=== PATIENT | female | born 2000 | race Caucasian/White ===

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

== ENCOUNTER → 2019-02-14 14:35 | Outpatient (CLI) | payer OTHER, SELFPAY ==
[2019-02-14 17:50] LABS: Absolute Neutrophil Count 4.3 X10^3/uL (2.0-7.7); Basophil# 0.02 X10^3/uL; Basophil% 0.3 % (0-1); Eosinophil# 0.04 X10^3/uL; Eosinophils% 0.6 % (0-5); Hemoglobin 13.3 g/dL (12.0-15.0); Lymphocyte % 27.9 % (19-41); Mean Corp Hgb Conc 31.7 g/dL (32-36); Mean Corpuscular Hgb 26.3 pg (27.0-32.0); Mean Corpuscular Volume 83.2 fL (81-99); Mean Platelet Vol. 11.3 fl (6.2-12.0); Monocyte# 0.56 X10^3/uL; Monocyte% 8.2 % (0-10); NRBC Flagged by Analyzer 0 % (0-5); Neutrophil # 4.27 X10^3/uL (2.7-7.7); Neutrophil % 62.9 % (47-70); Platelet Count 228 K/mm3 (150-450); RBC Distribution Width CV 12.3 % (11.6-14.6); RBC Distribution Width SD 37.2 fl (35.1-43.9); Red Blood Count 5.05 M/mm3 (4.2-5.4); White Blood Count 6.8 K/mm3 (4.4-11.0)
[2019-02-14 18:06] LABS: AST(SGOT) 17 U/L (15-37); Alanine Aminotransfer ALT/SGPT 22 U/L (13-56); Albumin, Serum 3.6 g/dL (3.2-5.0); Alkaline Phosphatase 46 U/L (45-117); Anion Gap 6 (5-15); BUN 14 mg/dL (7-18); BUN/Creat Ratio 20.2 RATIO (10-20); Calcium,Total 8.6 mg/dL (8.5-10.1); Chloride 109 mmol/L (98-107); Creatinine, Serum 0.69 mg/dL (0.55-1.02); EST Glomerular Filtration Rate 115 mL/min (>60); Est Glom Filt Rate - Afr Amer 139 mL/min (>60); Globulin 3.6 g/dL (2.2-4.2); Glucose 103 mg/dL (74-106); Potassium 3.8 mmol/L (3.5-5.1); Protein, Total 7.2 g/dL (6.4-8.2); Sodium Level 143 mmol/L (136-145)
== END ==
PROVIDERS: Family Provider Family Medicine; PCP Family Medicine; Referring Provider Internal Medicine Rheumatology; Visit Provider Internal Medicine Rheumatology
DX: M06.4 Inflammatory polyarthropathy (principal); R76.8 Other specified abnormal immunological findings in serum; R51 Headache
CPT/HCPCS: 36415; 80053; 85025

== ENCOUNTER → 2019-04-13 16:01 | Outpatient (CLI) | payer OTHER, SELFPAY ==
[2019-04-13 17:59] LABS: Absolute Lymphocyte Count 2.71 X10^3/uL (0.83-4.51); Absolute Neutrophil Count 5.5 X10^3/uL (2.0-7.7); Basophil# 0.04 X10^3/uL; Basophil% 0.4 % (0-1); Eosinophil# 0.09 X10^3/uL; Hematocrit 41.7 % (37-47); Hemoglobin 13.2 g/dL (12.0-15.0); Lymphocyte # 2.71 X10^3/ul (4.0); Mean Corp Hgb Conc 31.7 g/dL (32-36); Mean Corpuscular Hgb 26.5 pg (27.0-32.0); Mean Corpuscular Volume 83.6 fL (81-99); Mean Platelet Vol. 10.5 fl (6.2-12.0); Monocyte# 0.64 X10^3/uL; Monocyte% 7.1 % (0-10); NRBC Flagged by Analyzer 0 % (0-5); Neutrophil # 5.52 X10^3/uL (2.7-7.7); Neutrophil % 61.2 % (47-70); Platelet Count 267 K/mm3 (150-450); RBC Distribution Width CV 12.1 % (11.6-14.6); RBC Distribution Width SD 36.6 fl (35.1-43.9); Red Blood Count 4.99 M/mm3 (4.2-5.4)
[2019-04-13 18:32] LABS: ALB/GLOB Ratio 1.1 RATIO (0.9-2.4); AST(SGOT) 13 U/L (15-37); Alanine Aminotransfer ALT/SGPT 20 U/L (13-56); Albumin, Serum 3.7 g/dL (3.2-5.0); Alkaline Phosphatase 39 U/L (45-117); Anion Gap 4 (5-15); BUN 15 mg/dL (7-18); BUN/Creat Ratio 22.7 RATIO (10-20); Calcium,Total 8.4 mg/dL (8.5-10.1); Chloride 108 mmol/L (98-107); Creatinine, Serum 0.66 mg/dL (0.55-1.02); EST Glomerular Filtration Rate 122 mL/min (>60); Est Glom Filt Rate - Afr Amer 147 mL/min (>60); Globulin 3.3 g/dL (2.2-4.2); Glucose 87 mg/dL (74-106); Potassium 3.7 mmol/L (3.5-5.1); Sodium Level 142 mmol/L (136-145)
== END ==
PROVIDERS: Family Provider Family Medicine; PCP Family Medicine; Referring Provider Internal Medicine Rheumatology; Visit Provider Internal Medicine Rheumatology
DX: M06.4 Inflammatory polyarthropathy (principal); R76.8 Other specified abnormal immunological findings in serum; R51 Headache
CPT/HCPCS: 36415; 80053; 85025

== ENCOUNTER → 2019-06-30 16:06 | Outpatient (CLI) | payer OTHER, SELFPAY ==
[2019-06-30 18:59] LABS: Chlamydia Trachomatis by PCR Negative (Negative); Neisserai gonorrhoeae by PCR Negative (Negative); Probe Check PASS; Sample Adequacy Control PASS; Specimen Processing Control PASS
== END ==
LOC: LABSPEC 16:07
PROVIDERS: Family Provider Family Medicine; PCP Family Medicine; Visit Provider Obstetrics & Gynecology
DX: Z11.3 Encounter for screening for infections with a predominantly sexual mode of transmission (principal)
CPT/HCPCS: 87491; 87591

== ENCOUNTER → 2019-07-18 16:43 | Outpatient (CLI) | payer OTHER, SELFPAY ==
[2019-07-18 17:50] LABS: Absolute Lymphocyte Count 2.57 X10^3/uL (0.83-4.51); Absolute Neutrophil Count 2.2 X10^3/uL (2.0-7.7); Basophil# 0.02 X10^3/uL; Basophil% 0.4 % (0-1); Eosinophil# 0.08 X10^3/uL; Eosinophils% 1.5 % (0-5); Hematocrit 42.4 % (37-47); Hemoglobin 13.5 g/dL (12.0-15.0); Lymphocyte # 2.57 X10^3/ul (4.0); Lymphocyte % 48.1 % (19-41); Mean Corp Hgb Conc 31.8 g/dL (32-36); Mean Corpuscular Hgb 26.3 pg (27.0-32.0); Mean Corpuscular Volume 82.5 fL (81-99); Mean Platelet Vol. 10.6 fl (6.2-12.0); Monocyte# 0.46 X10^3/uL; Monocyte% 8.6 % (0-10); NRBC Flagged by Analyzer 0 % (0-5); Neutrophil # 2.21 X10^3/uL (2.7-7.7); Neutrophil % 41.4 % (47-70); Platelet Count 242 K/mm3 (150-450); RBC Distribution Width CV 11.8 % (11.6-14.6); RBC Distribution Width SD 35.6 fl (35.1-43.9); Red Blood Count 5.14 M/mm3 (4.2-5.4); White Blood Count 5.3 K/mm3 (4.4-11.0)
[2019-07-18 18:24] LABS: AST(SGOT) 16 U/L (15-37); Alanine Aminotransfer ALT/SGPT 21 U/L (13-56); Albumin, Serum 3.7 g/dL (3.2-5.0); Alkaline Phosphatase 41 U/L (45-117); Anion Gap 3 (5-15); BUN 10 mg/dL (7-18); BUN/Creat Ratio 15.9 RATIO (10-20); Calcium,Total 8.7 mg/dL (8.5-10.1); Chloride 109 mmol/L (98-107); Creatinine, Serum 0.63 mg/dL (0.55-1.02); EST Glomerular Filtration Rate 129 mL/min (>60); Est Glom Filt Rate - Afr Amer 156 mL/min (>60); Globulin 3.8 g/dL (2.2-4.2); Glucose 70 mg/dL (74-106); Potassium 3.4 mmol/L (3.5-5.1); Protein, Total 7.5 g/dL (6.4-8.2); Sodium Level 141 mmol/L (136-145)
== END ==
LOC: MTLAB 16:46
PROVIDERS: PCP Family Medicine; Referring Provider Internal Medicine Rheumatology; Visit Provider Internal Medicine Rheumatology
DX: M06.4 Inflammatory polyarthropathy (principal); R76.8 Other specified abnormal immunological findings in serum; R51 Headache; Z79.899 Other long term (current) drug therapy
CPT/HCPCS: 36415; 80053; 85025

== ENCOUNTER 2019-09-05 21:41 | Emergency (ER) | payer OTHER, SELFPAY ==
[2019-09-05 21:42] VITALS: BP 125/70; PULSE 77; RESP 16; TEMP 37; O2SAT 100; BMI 21.4
--- NOTE | 2019-09-05 21:43 | ED.RN ---
CALLED FOR EKG PER RN REQUEST, PULLED OLD EKGS FOR
--- NOTE | 2019-09-05 22:00 | RAD_ITS ---
STUDY: X-RAY CHEST REASON FOR EXAM: Female, 19 years old. CHEST PAIN STARTING TODAY TECHNIQUE: PA and lateral COMPARISON: August 03, 2018 FINDINGS: The lungs are clear and expanded. There is no demonstrated pleural abnormality. Normal size heart. Normal mediastinum and cayla. Normal visualized pulmonary arteries. Normal visualized aortic arch and descending thoracic aorta. Normal visualized thoracic spine. Normal visualized ribs, clavicles, and shoulders. There is no demonstrated abnormality of the visualized soft tissue structures of the upper abdomen. RAD/Chest PA and Lateral IMPRESSION: Normal x-ray examination of the chest. Electronically Signed: Willis Roldan MD at 22:18 EDT , Service support ,
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
[2019-09-05 22:15] LABS: Absolute Lymphocyte Count 3.02 X10^3/uL (0.83-4.51); Absolute Neutrophil Count 3.9 X10^3/uL (2.0-7.7); Basophil# 0.03 X10^3/uL; Basophil% 0.4 % (0-1); Eosinophil# 0.15 X10^3/uL; Eosinophils% 1.9 % (0-5); Hematocrit 44.3 % (37-47); Hemoglobin 14.3 g/dL (12.0-15.0); Lymphocyte # 3.02 X10^3/ul (4.0); Lymphocyte % 39.2 % (19-41); Mean Corp Hgb Conc 32.3 g/dL (32-36); Mean Corpuscular Volume 83.6 fL (81-99); Mean Platelet Vol. 10.3 fl (6.2-12.0); Monocyte# 0.61 X10^3/uL; Monocyte% 7.9 % (0-10); NRBC Flagged by Analyzer 0 % (0-5); Neutrophil # 3.88 X10^3/uL (2.7-7.7); Neutrophil % 50.3 % (47-70); Platelet Count 304 K/mm3 (150-450); RBC Distribution Width CV 12.7 % (11.6-14.6); RBC Distribution Width SD 38.2 fl (35.1-43.9); White Blood Count 7.7 K/mm3 (4.4-11.0)
--- NOTE | 2019-09-05 22:24 | EKG12_ITS ---
Test Reason : CP Blood Pressure : / mmHG Vent. Rate : 075 BPM Atrial Rate : 075 BPM P-R Int : 162 ms QRS Dur : 086 ms QT Int : 382 ms P-R-T Axes : -22 014 038 degrees QTc Int : 426 ms Normal sinus rhythm Nonspecific T wave abnormality Abnormal ECG Confirmed by PATRICIA PAYNE, TEDDY ([id number]), food editor MARY ANN DEWEY ([id number]) on 09/08/2019 12:54:47 PM Referred By: SANTIAGO Confirmed By:RUPESH GOMEZ MD
[2019-09-05 22:27] LABS: Anion Gap 6 (5-15); BUN 13 mg/dL (7-18); Calcium,Total 8.6 mg/dL (8.5-10.1); Chloride 112 mmol/L (98-107); Creatinine, Serum 0.68 mg/dL (0.55-1.02); EST Glomerular Filtration Rate 116 mL/min (>60); Est Glom Filt Rate - Afr Amer 140 mL/min (>60); Estimated Creatinine Clearance 123.54 ml/min; Glucose 111 mg/dL (74-106); Potassium 3.3 mmol/L (3.5-5.1); Sodium Level 143 mmol/L (136-145)
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
[2019-09-05 23:18] LABS: Erythrocyte Sedimentation Rate 3 mm/hr (0-20)
--- NOTE | 2019-09-05 23:19 | ED.DEP ---
ED Disposition - Plan for ED Patient: Instructions: CHEST PAIN, Uncertain Cause, Chest Wall Strain Referrals: Júnior Chapman III, MD [Primary Care Provider] - 3-5 Days
[2019-09-05 23:27] VITALS: BP 113/75; PULSE 77; RESP 18; O2SAT 99
== END 2019-09-05 23:27 | disposition home or self-care (01) ==
LOC: ED 22:22
PROVIDERS: Emergency Provider Emergency Medicine; PCP Family Medicine
DX: R07.89 Other chest pain (principal); M32.9 Systemic lupus erythematosus, unspecified
CPT/HCPCS: 71046; 71275; 80048; 85025; 85652; 93005; 99284; Q9967; A4216

== ENCOUNTER → 2019-09-25 08:37 | Outpatient (CLI) | payer OTHER, SELFPAY ==
[2019-09-05 21:42] VITALS: BMI 21.4
[2019-09-25 10:19] LABS: Absolute Lymphocyte Count 1.73 X10^3/uL (0.83-4.51); Absolute Neutrophil Count 5.6 X10^3/uL (2.0-7.7); Basophil# 0.03 X10^3/uL; Basophil% 0.4 % (0-1); Eosinophil# 0.21 X10^3/uL; Eosinophils% 2.5 % (0-5); Hematocrit 40.9 % (37-47); Hemoglobin 13.1 g/dL (12.0-15.0); Lymphocyte # 1.73 X10^3/ul (4.0); Lymphocyte % 20.8 % (19-41); Mean Corpuscular Hgb 26.6 pg (27.0-32.0); Mean Platelet Vol. 10.5 fl (6.2-12.0); Monocyte# 0.73 X10^3/uL; Monocyte% 8.8 % (0-10); NRBC Flagged by Analyzer 0 % (0-5); Neutrophil # 5.59 X10^3/uL (2.7-7.7); Neutrophil % 67.4 % (47-70); Platelet Count 241 K/mm3 (150-450); RBC Distribution Width CV 12.6 % (11.6-14.6); RBC Distribution Width SD 37.7 fl (35.1-43.9); Red Blood Count 4.93 M/mm3 (4.2-5.4); White Blood Count 8.3 K/mm3 (4.4-11.0)
[2019-09-25 10:34] LABS: AST(SGOT) 20 U/L (15-37); Alanine Aminotransfer ALT/SGPT 30 U/L (13-56); Albumin, Serum 3.7 g/dL (3.2-5.0); Alkaline Phosphatase 56 U/L (45-117); Anion Gap 7 (5-15); BUN 12 mg/dL (7-18); BUN/Creat Ratio 17.2 RATIO (10-20); Calcium,Total 8.8 mg/dL (8.5-10.1); Chloride 104 mmol/L (98-107); EST Glomerular Filtration Rate 113 mL/min (>60); Est Glom Filt Rate - Afr Amer 137 mL/min (>60); Globulin 3.8 g/dL (2.2-4.2); Glucose 89 mg/dL (74-106); Potassium 3.2 mmol/L (3.5-5.1); Protein, Total 7.5 g/dL (6.4-8.2); Sodium Level 139 mmol/L (136-145)
== END ==
PROVIDERS: PCP Family Medicine; Referring Provider Internal Medicine Rheumatology; Visit Provider Internal Medicine Rheumatology
DX: M06.4 Inflammatory polyarthropathy (principal); R76.8 Other specified abnormal immunological findings in serum; R51 Headache; Z79.899 Other long term (current) drug therapy
CPT/HCPCS: 36415; 80053; 85025

== ENCOUNTER 2019-11-16 17:25 | Emergency (ER) | payer OTHER, SELFPAY ==
[2019-11-16 17:25] VITALS: BP 174/99; PULSE 83; RESP 16; TEMP 36.1; O2SAT 97; BMI 20.9
--- NOTE | 2019-11-16 19:19 | ED.VISSUMM ---
- ER Visit Summary Date of Service: 11/16/19 Chief Complaint: [Pain] History of Present Illness: The patient is a 19 F [presents the emergency department chief complaint of pain that his whole body. Patient has history of lupus and think she is having a flareup. Patient try to call her surveillance supervisor but could not get a hold of her today. Patient denies any fever or cough. Denies any sore throat or body aches. Patient does complain of pain in her back as well as her knees. Patient complains of some pain into her neck. Patient already on prednisone daily 10 mg as well as Plaquenil and methotrexate. Takes a muscle relaxer.] Physical Examination: [HEENT-PERRLA, EOMI. Cranial nerves II through XII grossly intact. TMs clear. Mucous membranes moist. No adenopathy. Cardiovascular-regular rate and rhythm without murmur or ectopy Lungs-clear to auscultation, chest wall stable without crepitus or subcu emphysema Abdomen-normoactive bowel sounds, soft, nontender, no rebound or rigidity, no peritoneal signs. Back exam-no tenderness over the thoracic or lumbar spine. No real tenderness reproducible over the paraspinal musculature. Straight leg raises. Deep tendon reflexes are plus 2 out of 4 bilaterally. Extremities-intact ?4, normal range of motion, normal pulses, atraumatic] Test Results: [None indicated] Emergency Department Course and Treatment: [Patient had 1 dose of Castaner given.] Treatment Plan: [We will be given a prescription for Castaner and advised to follow-up with her surveillance supervisor within 3 to 4 days.] Disposition: [Discharged home in stable condition] Impression: [Whole-body pain/lupus flare] This note was generated with [employer] software. It may contain incorrect words, spelling, and punctuation that were not noted in review of the chart prior to signing ED Disposition - Plan for ED Patient: Referrals: Júnior Chapman III, MD [Primary Care Provider] -
--- NOTE | 2019-11-16 19:21 | DCINST.ED_ITS ---
ED Disposition - Plan for ED Patient: Instructions: Understanding Lupus Prescriptions: Hydrocodone Bitart/Apap 5-325 [Early 5MG-325MG] 1 tab PO Q4H PRN PRN 2 Days #10 tab PRN Reason: Pain Prescription Printed Referrals: Júnior Chapman III, MD [Primary Care Provider] - 3-5 Days Additional Instructions: Call your Health And Fitness Professor in 1-2 days
[2019-11-16] MEDS: HYDROcodone Bitartrate/Apap 5/325 Tablet PO (20:18)
[2019-11-16 20:23] VITALS: BP 125/78; PULSE 73; RESP 19; O2SAT 99
== END 2019-11-16 20:23 | disposition home or self-care (01) ==
LOC: ED 19:34
PROVIDERS: Emergency Provider Emergency Medicine; PCP Family Medicine
DX: M32.9 Systemic lupus erythematosus, unspecified (principal); M54.9 Dorsalgia, unspecified; M25.562 Pain in left knee; M25.561 Pain in right knee; M54.2 Cervicalgia; Z79.52 Long term (current) use of systemic steroids; Z79.899 Other long term (current) drug therapy
CPT/HCPCS: 99283

== ENCOUNTER → 2019-11-21 16:49 | Outpatient (CLI) | payer OTHER, SELFPAY ==
[2019-11-16 17:25] VITALS: BMI 20.9
[2019-11-21 18:51] LABS: Absolute Lymphocyte Count 1.44 X10^3/uL (0.83-4.51); Basophil# 0.02 X10^3/uL; Basophil% 0.2 % (0-1); Eosinophil# 0.01 X10^3/uL; Eosinophils% 0.1 % (0-5); Hemoglobin 12.9 g/dL (12.0-15.0); Lymphocyte # 1.44 X10^3/ul (4.0); Lymphocyte % 17.8 % (19-41); Mean Corp Hgb Conc 31.5 g/dL (32-36); Mean Corpuscular Hgb 26.5 pg (27.0-32.0); Mean Corpuscular Volume 84.2 fL (81-99); Mean Platelet Vol. 10.8 fl (6.2-12.0); Monocyte# 0.56 X10^3/uL; Monocyte% 6.9 % (0-10); NRBC Flagged by Analyzer 0 % (0-5); Neutrophil # 6.04 X10^3/uL (2.7-7.7); Neutrophil % 74.8 % (47-70); Platelet Count 289 K/mm3 (150-450); RBC Distribution Width CV 12.2 % (11.6-14.6); RBC Distribution Width SD 36.7 fl (35.1-43.9); Red Blood Count 4.87 M/mm3 (4.2-5.4); White Blood Count 8.1 K/mm3 (4.4-11.0)
[2019-11-21 19:22] LABS: AST(SGOT) 15 U/L (15-37); Alanine Aminotransfer ALT/SGPT 17 U/L (13-56); Albumin, Serum 3.9 g/dL (3.2-5.0); Alkaline Phosphatase 50 U/L (45-117); Anion Gap 8 (5-15); BUN 12 mg/dL (7-18); BUN/Creat Ratio 15.1 RATIO (10-20); Chloride 109 mmol/L (98-107); EST Glomerular Filtration Rate 97 mL/min (>60); Est Glom Filt Rate - Afr Amer 118 mL/min (>60); Globulin 3.8 g/dL (2.2-4.2); Glucose 128 mg/dL (74-106); Potassium 3.6 mmol/L (3.5-5.1); Protein, Total 7.7 g/dL (6.4-8.2); Sodium Level 142 mmol/L (136-145)
== END ==
PROVIDERS: PCP Family Medicine; Referring Provider Internal Medicine Rheumatology; Visit Provider Internal Medicine Rheumatology
DX: M06.4 Inflammatory polyarthropathy (principal); R76.8 Other specified abnormal immunological findings in serum; R51 Headache; Z79.899 Other long term (current) drug therapy
CPT/HCPCS: 36415; 80053; 85025

== ENCOUNTER → 2020-01-02 | Outpatient (CLI) | payer OTHER, SELFPAY | END | disposition home or self-care (01) | LOC: LABSPEC 01-03 07:33 | PROVIDERS: PCP Family Medicine; Visit Provider Family Medicine Hospice and Palliative Medicine | DX: Z11.59 Encounter for screening for other viral diseases (principal) | CPT/HCPCS: 87635; G2023; U0003 ==

== ENCOUNTER → 2020-02-19 11:48 | Outpatient (CLI) | payer OTHER, SELFPAY ==
[2020-02-19 15:59] LABS: Absolute Lymphocyte Count 2.13 X10^3/uL (0.83-4.51); Absolute Neutrophil Count 6.4 X10^3/uL (2.0-7.7); Basophil# 0.04 X10^3/uL; Basophil% 0.4 % (0-1); Eosinophil# 0.21 X10^3/uL; Eosinophils% 2.2 % (0-5); Hematocrit 42.5 % (37-47); Hemoglobin 13.4 g/dL (12.0-15.0); Lymphocyte # 2.13 X10^3/ul (4.0); Lymphocyte % 22.7 % (19-41); Mean Corp Hgb Conc 31.5 g/dL (32-36); Mean Corpuscular Hgb 26.2 pg (27.0-32.0); Mean Corpuscular Volume 83.2 fL (81-99); Mean Platelet Vol. 10.6 fl (6.2-12.0); Monocyte% 6.4 % (0-10); NRBC Flagged by Analyzer 0 % (0-5); Neutrophil # 6.37 X10^3/uL (2.7-7.7); Neutrophil % 68.1 % (47-70); Platelet Count 352 K/mm3 (150-450); RBC Distribution Width CV 12.7 % (11.6-14.6); RBC Distribution Width SD 37.9 fl (35.1-43.9); Red Blood Count 5.11 M/mm3 (4.2-5.4); White Blood Count 9.4 K/mm3 (4.4-11.0)
[2020-02-19 16:19] LABS: AST(SGOT) 12 U/L (15-37); Alanine Aminotransfer ALT/SGPT 20 U/L (13-56); Albumin, Serum 3.7 g/dL (3.2-5.0); Alkaline Phosphatase 52 U/L (45-117); Anion Gap 7 (5-15); BUN 10 mg/dL (7-18); BUN/Creat Ratio 15.2 RATIO (10-20); Calcium,Total 8.6 mg/dL (8.5-10.1); Chloride 108 mmol/L (98-107); Creatinine, Serum 0.66 mg/dL (0.55-1.02); EST Glomerular Filtration Rate 121 mL/min (>60); Est Glom Filt Rate - Afr Amer 147 mL/min (>60); Globulin 3.8 g/dL (2.2-4.2); Glucose 85 mg/dL (74-106); Potassium 3.5 mmol/L (3.5-5.1); Protein, Total 7.5 g/dL (6.4-8.2); Sodium Level 140 mmol/L (136-145)
== END ==
LOC: MTLAB 11:49
PROVIDERS: PCP Family Medicine; Referring Provider Internal Medicine Rheumatology; Visit Provider Internal Medicine Rheumatology
DX: M06.4 Inflammatory polyarthropathy (principal); R76.8 Other specified abnormal immunological findings in serum; R51 Headache; Z79.899 Other long term (current) drug therapy
CPT/HCPCS: 36415; 80053; 85025

== ENCOUNTER → 2020-02-21 16:05 | Outpatient (CLI) | payer OTHER, SELFPAY ==
--- NOTE | 2020-02-21 16:07 | RAD_ITS ---
STUDY: X-RAY CHEST REASON FOR EXAM: Female, 19 years old. PENITENTIARY DRUG USE FOR ARTHRITIS PER PATIENT. TECHNIQUE: PA and lateral views of the chest. COMPARISON: Prior study of 08/03/2018 FINDINGS: The lungs are clear and expanded. There is no demonstrated pleural abnormality. Normal size heart. Normal mediastinum and cayla. Normal visualized pulmonary arteries. Normal visualized aortic arch and descending thoracic aorta. Normal visualized thoracic spine. Normal visualized ribs, clavicles, and shoulders. There is no demonstrated abnormality of the visualized soft tissue structures of the upper abdomen. RAD/Chest PA and Lateral IMPRESSION: Normal x-ray examination of the chest. Electronically Signed: Goldy Cha MD at 16:41 EDT , Service support ,
[2020-02-24 08:08] LABS: QNTFERON TB Mitogen Value > 10.00 IU/mL (.); QNTFERON TB Nil Value 0.01 IU/mL (.); QNTFERON TB1+ Ag Value 0.13 IU/mL (.); QNTFERON TB2+ Ag Value 0.01 IU/mL (.)
[2020-02-24 14:08] LABS: QNTIFERON TB Positive Criteria Negative (Negative)
== END ==
LOC: MTLAB 16:06
PROVIDERS: PCP Family Medicine; Referring Provider Internal Medicine Rheumatology; Visit Provider Internal Medicine Rheumatology
DX: M06.4 Inflammatory polyarthropathy (principal); F32.9 Major depressive disorder, single episode, unspecified; R76.8 Other specified abnormal immunological findings in serum; R51 Headache; Z79.899 Other long term (current) drug therapy
CPT/HCPCS: 36415; 71046; 86480

== ENCOUNTER → 2020-04-11 16:25 | Outpatient (CLI) | payer OTHER, SELFPAY ==
[2020-04-11 17:40] LABS: Absolute Lymphocyte Count 2.48 X10^3/uL (0.83-4.51); Absolute Neutrophil Count 3.3 X10^3/uL (2.0-7.7); Basophil# 0.03 X10^3/uL; Basophil% 0.5 % (0-1); Eosinophil# 0.12 X10^3/uL; Eosinophils% 1.8 % (0-5); Hemoglobin 13.1 g/dL (12.0-15.0); Lymphocyte # 2.48 X10^3/ul (4.0); Lymphocyte % 37.5 % (19-41); Mean Corp Hgb Conc 31.2 g/dL (32-36); Mean Corpuscular Hgb 26.1 pg (27.0-32.0); Mean Corpuscular Volume 83.8 fL (81-99); Monocyte# 0.65 X10^3/uL; Monocyte% 9.8 % (0-10); NRBC Flagged by Analyzer 0 % (0-5); Neutrophil # 3.31 X10^3/uL (2.7-7.7); Neutrophil % 50.1 % (47-70); Platelet Count 274 K/mm3 (150-450); RBC Distribution Width CV 12.9 % (11.6-14.6); RBC Distribution Width SD 38.9 fl (35.1-43.9); Red Blood Count 5.01 M/mm3 (4.2-5.4); White Blood Count 6.6 K/mm3 (4.4-11.0)
[2020-04-11 18:02] LABS: AST(SGOT) 26 U/L (15-37); Alanine Aminotransfer ALT/SGPT 26 U/L (13-56); Albumin, Serum 3.8 g/dL (3.2-5.0); Alkaline Phosphatase 56 U/L (45-117); Anion Gap 4 (5-15); BUN 9 mg/dL (7-18); BUN/Creat Ratio 12.7 RATIO (10-20); Calcium,Total 8.9 mg/dL (8.5-10.1); Chloride 111 mmol/L (98-107); Creatinine, Serum 0.71 mg/dL (0.55-1.02); EST Glomerular Filtration Rate 111 mL/min (>60); Est Glom Filt Rate - Afr Amer 134 mL/min (>60); Globulin 3.8 g/dL (2.2-4.2); Glucose 77 mg/dL (74-106); Potassium 4.1 mmol/L (3.5-5.1); Protein, Total 7.6 g/dL (6.4-8.2); Sodium Level 141 mmol/L (136-145)
== END ==
PROVIDERS: PCP Family Medicine; Referring Provider Internal Medicine Rheumatology; Visit Provider Internal Medicine Rheumatology
DX: M06.09 Rheumatoid arthritis without rheumatoid factor, multiple sites (principal); F32.9 Major depressive disorder, single episode, unspecified; R51.9 Headache, unspecified; R76.8 Other specified abnormal immunological findings in serum; Z79.899 Other long term (current) drug therapy
CPT/HCPCS: 36415; 80053; 85025

== ENCOUNTER → 2020-07-12 15:43 | Outpatient (CLI) | payer OTHER, SELFPAY ==
[2020-07-12 17:43] LABS: Absolute Lymphocyte Count 2.51 X10^3/uL (0.83-4.51); Absolute Neutrophil Count 3.7 X10^3/uL (2.0-7.7); Basophil# 0.02 X10^3/uL; Basophil% 0.3 % (0-1); Eosinophil# 0.17 X10^3/uL; Eosinophils% 2.4 % (0-5); Hematocrit 46.4 % (37-47); Hemoglobin 14.5 g/dL (12.0-15.0); Lymphocyte # 2.51 X10^3/ul (4.0); Lymphocyte % 35.6 % (19-41); Mean Corp Hgb Conc 31.3 g/dL (32-36); Mean Corpuscular Hgb 26.3 pg (27.0-32.0); Mean Corpuscular Volume 84.1 fL (81-99); Mean Platelet Vol. 11.1 fl (6.2-12.0); Monocyte# 0.61 X10^3/uL; Monocyte% 8.6 % (0-10); NRBC Flagged by Analyzer 0 % (0-5); Neutrophil # 3.73 X10^3/uL (2.7-7.7); Neutrophil % 52.8 % (47-70); Platelet Count 304 K/mm3 (150-450); RBC Distribution Width CV 12.1 % (11.6-14.6); RBC Distribution Width SD 36.5 fl (35.1-43.9); Red Blood Count 5.52 M/mm3 (4.2-5.4); White Blood Count 7.1 K/mm3 (4.4-11.0)
[2020-07-12 17:55] LABS: AST(SGOT) 13 U/L (15-37); Alanine Aminotransfer ALT/SGPT 18 U/L (13-56); Albumin, Serum 3.7 g/dL (3.2-5.0); Alkaline Phosphatase 53 U/L (45-117); Anion Gap 5 (5-15); BUN 10 mg/dL (7-18); BUN/Creat Ratio 17.7 RATIO (10-20); Calcium,Total 8.6 mg/dL (8.5-10.1); Chloride 107 mmol/L (98-107); Creatinine, Serum 0.56 mg/dL (0.55-1.02); EST Glomerular Filtration Rate 144 mL/min (>60); Est Glom Filt Rate - Afr Amer 174 mL/min (>60); Globulin 3.8 g/dL (2.2-4.2); Glucose 78 mg/dL (74-106); Potassium 3.8 mmol/L (3.5-5.1); Protein, Total 7.5 g/dL (6.4-8.2); Sodium Level 140 mmol/L (136-145)
[2020-07-16 03:06] LABS: Chlamydia By Nucleic Acid AMP Negative (Negative)
[2020-07-16 09:44] LABS: Gonococcus By Nucleic Acid AMP Negative (Negative)
[2020-07-17 12:35] LABS: HPV Reflexed? NOT INDICATED
== END ==
PROVIDERS: PCP Family Medicine; Referring Provider Internal Medicine Rheumatology; Visit Provider Internal Medicine Rheumatology
DX: M06.09 Rheumatoid arthritis without rheumatoid factor, multiple sites (principal); F32.9 Major depressive disorder, single episode, unspecified; R76.8 Other specified abnormal immunological findings in serum; R51.9 Headache, unspecified; Z12.4 Encounter for screening for malignant neoplasm of cervix; Z11.3 Encounter for screening for infections with a predominantly sexual mode of transmission; Z79.899 Other long term (current) drug therapy
CPT/HCPCS: 36415; 80053; 85025; 87491; 87591; 88175; G0145

== ENCOUNTER → 2020-07-29 09:05 | Outpatient (CLI) | payer OTHER, SELFPAY ==
[2020-07-29 10:16] LABS: Cholesterol 173 mg/dL (200); High Density Lipoprotein 59 mg/dL; Triglycerides 155 mg/dL; Very Low Density Lipoprotein 31 mg/dL (5-40)
== END ==
LOC: LAB 09:08 → MTLAB 09:44
PROVIDERS: PCP Family Medicine; Referring Provider Internal Medicine Rheumatology; Visit Provider Internal Medicine Rheumatology
DX: M06.09 Rheumatoid arthritis without rheumatoid factor, multiple sites (principal); F32.9 Major depressive disorder, single episode, unspecified; R76.8 Other specified abnormal immunological findings in serum; R51.9 Headache, unspecified; Z79.899 Other long term (current) drug therapy
CPT/HCPCS: 36415; 80061

== ENCOUNTER 2020-08-09 12:00 | Emergency (ER) | payer OTHER, SELFPAY ==
[2020-08-09 12:01] VITALS: BP 132/82; PULSE 77; RESP 16; TEMP 36.6; O2SAT 97; BMI 22.6
--- NOTE | 2020-08-09 13:00 | EKG12_ITS ---
Test Reason : CP Blood Pressure : / mmHG Vent. Rate : 068 BPM Atrial Rate : 068 BPM P-R Int : 128 ms QRS Dur : 074 ms QT Int : 402 ms P-R-T Axes : 041 010 044 degrees QTc Int : 427 ms Normal sinus rhythm Normal ECG Confirmed by PATRICIA PAYNE, TEDDY ([id number]), international editorial producer ROBERT LEAHY ([id number]) on 08/12/2020 11:39:27 A M Referred By: MARIEL Confirmed By:RUPESH GOMEZ MD
--- NOTE | 2020-08-09 13:11 | RAD_ITS ---
STUDY: X-RAY CHEST REASON FOR EXAM: Female, 20 years old. CHEST PAIN, LIGHTHEADED, DIZZY, NAUSEA TECHNIQUE: Single AP portable view of the chest. COMPARISON: Comparison is made with prior study dated 02/21/2020. FINDINGS: EKG electrodes are seen. The lungs are clear and expanded. Scattered calcified granulomas. There is no demonstrated pleural abnormality. Normal size heart. Normal mediastinum and cayla. Normal visualized pulmonary arteries. Normal visualized aortic arch and descending thoracic aorta. Normal visualized thoracic spine. Normal visualized ribs, clavicles, and shoulders. There is no demonstrated abnormality of the visualized soft tissue structures of the upper abdomen. RAD/Chest 1 View (Portable) IMPRESSION: Normal x-ray examination of the chest. Electronically Signed: Chuy Sharif MD at 13:30 EST , Service support ,
[2020-08-09 13:25] LABS: Absolute Lymphocyte Count 2.25 X10^3/uL (0.83-4.51); Absolute Neutrophil Count 4.1 X10^3/uL (2.0-7.7); Basophil# 0.02 X10^3/uL; Basophil% 0.3 % (0-1); Eosinophil# 0.06 X10^3/uL; Eosinophils% 0.9 % (0-5); Hematocrit 44.7 % (37-47); Hemoglobin 14.6 g/dL (12.0-15.0); Lymphocyte # 2.25 X10^3/ul (4.0); Lymphocyte % 32.7 % (19-41); Mean Corp Hgb Conc 32.7 g/dL (32-36); Mean Corpuscular Hgb 26.5 pg (27.0-32.0); Mean Corpuscular Volume 81.3 fL (81-99); Mean Platelet Vol. 10.4 fl (6.2-12.0); Monocyte# 0.43 X10^3/uL; Monocyte% 6.2 % (0-10); NRBC Flagged by Analyzer 0 % (0-5); Neutrophil # 4.12 X10^3/uL (2.7-7.7); Neutrophil % 59.8 % (47-70); Platelet Count 287 K/mm3 (150-450); RBC Distribution Width CV 12.1 % (11.6-14.6); RBC Distribution Width SD 36.2 fl (35.1-43.9); White Blood Count 6.9 K/mm3 (4.4-11.0)
[2020-08-09 13:38] LABS: D-Dimer Quantitative (DVT/PE) <= 0.27 FEU/ug/m (0.27-0.49)
[2020-08-09 13:41] LABS: Anion Gap 7 (5-15); BUN 15 mg/dL (7-18); BUN/Creat Ratio 23.4 RATIO (10-20); Chloride 105 mmol/L (98-107); Creatinine, Serum 0.64 mg/dL (0.55-1.02); EST Glomerular Filtration Rate 124 mL/min (>60); Est Glom Filt Rate - Afr Amer 151 mL/min (>60); Estimated Creatinine Clearance 130.17 ml/min; Glucose 79 mg/dL (74-106); Potassium 3.4 mmol/L (3.5-5.1); Sodium Level 138 mmol/L (136-145)
[2020-08-09] MEDS: Aspirin 81 MG TAB.CHEW 324 MG PO (13:43)
--- NOTE | 2020-08-09 14:29 | ED.DCSUM_ITS ---
- ER Visit Summary Date of Service: 08/09/20 Chief Complaint: Chest pain History of Present Illness: The patient is a 20 F who presents with chest pain that has been constant for the past 2 weeks. Patient states the pain waxes and wanes. Patient states the pain became worse today. Patient describes her pain as burning. Patient states the pain is usually in the substernal area but sometimes radiates to the entire chest. Patient states it is worse with deep breathing. Patient states nothing seems to help. Patient admits to nausea but denies any vomiting. Patient also admits to some lightheadedness and palpitations. Patient denies any cough or fevers. Patient denies any cardiac or PE risk factors. Physical Examination: Vital signs are stable. Patient is afebrile. Patient is in no acute distress. Oral mucosa is pink and moist. Neck is supple. Trachea is midline. There is no JVD noted. Heart was regular rate and rhythm. Lungs are clear and equal bilaterally. Abdomen is soft. Bowel sounds are normal. There is no tenderness. There is no rebound or guarding noted. Skin is warm dry. Cranial nerves II through XII are intact. There are no focal motor or sensory deficits noted. Extremities are intact. There is no calf tenderness or edema. Test Results: EKG was obtained. On my interpretation, there is a normal sinus rhythm with a rate of 68. There are no acute ST or T wave changes. This was unchanged compared to previous EKG dated 09/05/2019. Portable 1 view chest x-ray was obtained. On my interpretation, lung santos are clear. There is normal cardiac silhouette. Bony thorax is normal. There is no acute process noted. Radiologist also interpreted the x-ray and agrees. CBC and basic metabolic profile were within normal limits. Troponin was normal. D-dimer was normal. Emergency Department Course and Treatment: Patient was given aspirin here. Patient was feeling better on reevaluation. Patient has a HEART score of 1. Patient was advised that this is low risk for acute cardiac event. Patient was instructed to follow-up with her primary care physician in 5 to 7 days. Patient understood and was agreeable with the plan. All questions were answered. Disposition: Discharge home Impression: 1. Chest pain of uncertain etiology This note was generated with [employer] dictation software. It may contain incorrect words, spelling, and punctuation that were not noted in review of the chart prior to signing ED Disposition - Plan for ED Patient: Disposition: Home or Assisted Living Diagnosis: Chest pain Instructions: ED Chest Pain, Uncertain Cause Referrals: Júnior Chapman III, MD [Primary Care Provider] - 5-7 Days
[2020-08-09 14:45] VITALS: BP 119/76; PULSE 73; RESP 21; O2SAT 97
--- NOTE | 2020-08-09 14:46 | ED.RN ---
IV DC'ED, CATHETER INTACT, SMALL GAUZE DRESSING PLACED. DISCHARGE INSTRUCTIONS GIVEN TO AND REVIEWED WITH PATIENT, PATIENT DENIES QUESTIONS OR CONCERNS AND VOICES UNDERSTANDING OF DISCHARGE INSTRUCTIONS. PT AMBULATES OUT OF ROOM WITHOUT DIFFICULTY.
== END 2020-08-09 14:46 | disposition home or self-care (01) ==
PROVIDERS: Emergency Provider Emergency Medicine; PCP Family Medicine
DX: R07.9 Chest pain, unspecified (principal)
CPT/HCPCS: 71045; 80048; 84484; 85025; 85379; 93005; 99285

== ENCOUNTER 2020-12-17 10:04 | Emergency (ER) | payer OTHER, SELFPAY ==
[2020-12-17 10:05] VITALS: BP 149/94; PULSE 75; RESP 16; TEMP 36.2; O2SAT 98; BMI 22.6
[2020-12-17 10:41] VITALS: BP 109/70; BP 117/82; BP 119/69; PULSE 63; PULSE 68; PULSE 71
--- NOTE | 2020-12-17 10:41 | RAD_ITS ---
STUDY: X-RAY CHEST REASON FOR EXAM: Female, 20 years old. Near syncope TECHNIQUE: 1 view COMPARISON: 08/09/2020 FINDINGS: The lungs are clear and expanded. There is no demonstrated pleural abnormality. Normal size heart. Normal mediastinum and cayla. Normal visualized pulmonary arteries. Normal visualized aortic arch and descending thoracic aorta. Normal visualized thoracic spine. Normal visualized ribs, clavicles, and shoulders. There is no demonstrated abnormality of the visualized soft tissue structures of the upper abdomen. RAD/Chest 1 View (Portable) IMPRESSION: Normal x-ray examination of the chest unchanged since July 2020. Electronically Signed: Lucía Alston, at 11:48 EDT Tel , Service support ,
--- NOTE | 2020-12-17 10:42 | EKG12_ITS ---
Test Reason : SYNCOPE Blood Pressure : / mmHG Vent. Rate : 063 BPM Atrial Rate : 063 BPM P-R Int : 162 ms QRS Dur : 082 ms QT Int : 396 ms P-R-T Axes : 012 016 027 degrees QTc Int : 405 ms Normal sinus rhythm Normal ECG Confirmed by LETHA PAYNE, JENNIFER ([id number]), proposal editor ROBERT LEAHY ([id number]) on 12/19/2020 12:31:48 PM Referred By: HONEY/LEONARD Confirmed By:JENNIFER MONAE MD
--- NOTE | 2020-12-17 10:46 | EX.ED.DYSGE1 ---
HPI History of Present Illness Chief Complaint: Dizziness Informant: patient Onset/Context/Timing Onset: Month(s) (1) Context: Gradual Onset Timing: Intermittent Quality: Lightheaded Location: Generalized Worsened by: Nothing Relieved by: Nothing Narrative Narrative: Patient presents with weakness and near syncopal episode today. Patient states she has been having similar symptoms over the past month. Patient states they are intermittent. Patient states she feels lightheaded and weak. Patient states that today she nearly passed out but her boss caught her prior to falling. Patient states nothing makes it worse and nothing makes it better. Patient states she does have some feelings like she is shaky. Patient states she has had pain on the right side of her chest in the past but had this worked up and it was negative. Patient denies any other chest pain or palpitations. [facility] Medical History (Updated 12/17/20 @ 12:[address] Cory Tripathi, DO) Rheumatoid arthritis Home Medications topiramate [Topamax] 50 mg PO DAILY 07/03/16 [History Last Taken 08/03/18] norgestimate-ethinyl estradiol [[place]-Linyah 28 Tablet] 1 tab PO DAILY 08/03/18 [History Last Taken 08/03/18] folic acid 2 mg PO DAILY 09/05/19 [History Last Taken Unknown] hydroxychloroquine 300 mg PO DAILYCM 09/05/19 [History Last Taken Unknown] methotrexate sodium 8 tab PO QWEEK 09/05/19 [History Last Taken Unknown] tizanidine 4 mg PO TID PRN 11/16/19 [History Last Taken Unknown] buspirone 15 mg PO TID 08/09/20 [History Last Taken Unknown] duloxetine 30 mg PO DAILY 08/09/20 [History Last Taken Unknown] hydrocodone-acetaminophen 1 tab PO Q8H PRN 08/09/20 [History Last Taken Unknown] rizatriptan 10 mg PO PRN PRN 08/09/20 [History Last Taken Unknown] cephalexin 500 mg PO Q6 #12 capsule 12/17/20 [Rx Last Taken Unknown] tofacitinib [Xeljanz XR] 11 mg PO DAILY 12/17/20 [History Last Taken Unknown] Allergy/AdvReac Type Severity Reaction Status Date / Time No Known Allergies Allergy Verified 12/17/20 10:05 no surgical history Social History Smoking Status: Never smoker ROS ROS ED Constitutional Constitutional ED: Denies chills or fever(s) Eyes Eyes: Denies blurry vision or change in vision ENT ENT ED: Denies rhinorrhea or sore throat Cardiovascular Cardiovascular: Reports chest pain; Denies palpitations Respiratory/Chest Respiratory/Chest: Denies cough or dyspnea Gastrointestinal Gastrointestinal: Denies nausea or vomiting Genitourinary Genitourinary ED: Denies dysuria or hematuria Musculoskeletal Musculoskeletal: Reports arthralgias; Denies myalgias Integumentary Denies abscess or rash Neurologic Neurologic: Denies headache(s) or weakness Allergic/Immunologic Allergic/Immunologic ED: Denies mouth swelling or urticaria EXAM Physical Exam Const Vital Signs: 12/17/20 10:05 12/17/20 10:41 12/17/20 11:21 Temperature 97.1 F L Temperature Source Temporal Pulse Rate 75 66 Pulse Rate [Lying] 63 Pulse Rate [Sitting] 68 Pulse Rate [Standing] 71 Respiratory Rate 16 16 Respiratory Effort Normal Respiratory Pattern Normal Blood Pressure 149/94 H 117/82 H Blood Pressure [Lying] 109/70 Blood Pressure [Sitting] 119/69 Blood Pressure [Standing] 117/82 H Blood Pressure Mean 112 93 Blood Pressure Mean [Lying] 83 Blood Pressure Mean [Sitting] 85 Blood Pressure Mean [Standing] 93 Pulse Ox 98 8 Oxygen Delivery Method Room Air Room Air Positive well nourished and well developed General Appearance ED: well developed HEENT Reports moist mucous membranes Neck supple and no JVD Resp normal respiratory effort and clear to auscultation bilaterally Cardio regular rate, regular rhythm and no murmurs GI normal to inspection, nondistended, normoactive bowel sounds and non-tender Palpation: soft Extremity normal to inspection General Extremety ED: Negative for edema or tenderness General Extremity: Negative for edema Neuro oriented x3, CN's II-XII intact bilaterally and no sensory deficits noted Sensorium / Orientation: alert Motor Exam: strength 5/5 throughout Psych mental status grossly normal Skin no rashes or lesions noted MDM MDM MDM Narrative Medical decision making narrative: Patient was given IV fluids here. CBC and comprehensive metabolic profile were within normal limits. Urinalysis shows leukocyte esterase of 500 with 10-25 white blood cells. Portable 1 view chest x-ray was obtained. On my interpretation, lung santos are clear. There is normal cardiac silhouette. Bony thorax is normal. There is no acute process noted. Radiologist also interpreted the x-ray and agrees. EKG was obtained. On my interpretation, it showed a normal sinus rhythm with a rate of 63. PA interval, QRS interval, and QTc intervals were all normal. [place] was normal. There are no acute ST or T wave changes. Serum hCG was negative. Patient was advised of her findings. Patient was given a prescription for Keflex. Patient was given her first dose here. Patient was instructed to follow-up with her primary care physician in 3 to 5 days. Patient understood and was agreeable with the plan. All questions were answered. Lab Data Attestation: I reviewed the patient's lab results. Labs: Laboratory Results - last 24 hr 12/17/20 12/17/20 12/17/20 11:09 11:15 11:15 WBC 8.3 RBC 5.20 Hgb 13.3 Hct 42.3 MCV 81.3 MCH 25.6 L MCHC 31.4 L RDW Std Deviation 36.2 RDW Coeff of Davi 12.2 Plt Count 250 MPV 10.4 Immature Gran % (Auto) 0.200 Neut % (Auto) 66.8 Lymph % (Auto) 25.6 [place] % (Auto) 5.9 Eos % (Auto) 1.3 Baso % (Auto) 0.2 Absolute Neuts (auto) 5.6 Absolute Lymphs (auto) 2.13 Nucleated RBC % 0 Sodium 140 Potassium 3.6 Chloride 107 Carbon Dioxide 27.0 Anion Gap 6 BUN 10 Creatinine 0.61 Estim Creat Clear Calc 136.57 Est GFR (MDRD) Af Amer 159 Est GFR (MDRD) Non-Af 131 BUN/Creatinine Ratio 16.4 Glucose 87 Calcium 8.6 Total Bilirubin 0.40 AST 14 L ALT 16 Alkaline Phosphatase 64 Total Protein 7.4 Albumin 3.8 Globulin 3.6 Albumin/Globulin Ratio 1.1 Serum , Qual Urine Color Yellow Urine Clarity Sl. Cloudy Urine pH 7.0 Ur Specific [place] 1.005 Urine Protein Negative Urine Glucose (UA) Normal Urine Ketones Negative Urine Occult Blood Negative Urine Nitrite Negative Urine Bilirubin Negative Urine Urobilinogen Normal Ur Leukocyte Esterase 500 H Urine RBC 0-5 SEEN Urine WBC 10-25 SEEN Ur Squamous Epith Cells 0-5 SEEN Urine Bacteria RARE Urine Mucus 0 SEEN 06/22/21 11:15 WBC RBC Hgb Hct MCV MCH MCHC RDW Std Deviation RDW Coeff of Davi Plt Count MPV Immature Gran % (Auto) Neut % (Auto) Lymph % (Auto) [place] % (Auto) Eos % (Auto) Baso % (Auto) Absolute Neuts (auto) Absolute Lymphs (auto) Nucleated RBC % Sodium Potassium Chloride Carbon Dioxide Anion Gap BUN Creatinine Estim Creat Clear Calc Est GFR (MDRD) Af Amer Est GFR (MDRD) Non-Af BUN/Creatinine Ratio Glucose Calcium Total Bilirubin AST ALT Alkaline Phosphatase Total Protein Albumin Globulin Albumin/Globulin Ratio Serum , Qual NEGATIVE Urine Color Urine Clarity Urine pH Ur Specific [place] Urine Protein Urine Glucose (UA) Urine Ketones Urine Occult Blood Urine Nitrite Urine Bilirubin Urine Urobilinogen Ur Leukocyte Esterase Urine RBC Urine WBC Ur Squamous Epith Cells Urine Bacteria Urine Mucus Radiography Chest X-Ray - ED: 1 View, Read by ED Physician, Read by Radiologist and Normal Diagnostic Testing: Radiology Impression Chest X-Ray 12/17/20 10:41 IMPRESSION: Normal x-ray examination of the chest unchanged since July 2020. Electronically Signed: Lucía Alston, at 11:48 EDT Tel , Service support , EKG Initial EKG: Attestation: I personally reviewed and interpreted this EKG as follows: Interpretation: Sinus Rhythm (63) and No Acute Injury Pattern Discharge Plan Triage Chief Complaint: Dizziness ED Provider: Cory Tripathi Dx/Rx/DC Orders Clinical Impression: Urinary tract infection, Near syncope Instructions: ED Near-Fainting, Uncertain Cause, ED CYSTITIS Female Adult Prescriptions: New cephalexin [cephalexin] 500 MG capsule 500 mg PO Q6 Qty: 12 RF: 0 No Action topiramate [Topamax] 25 MG tablet 50 mg PO DAILY RF: 0 norgestimate-ethinyl estradiol [[place]-Linyah] 1 EACH tablet 1 tab PO DAILY RF: 0 methotrexate sodium 2.5 MG tablet 8 tab PO QWEEK RF: 0 folic acid 1 MG tablet 2 mg PO DAILY RF: 0 hydroxychloroquine 200 MG tablet 300 mg PO DAILYCM RF: 0 tizanidine 4 MG capsule 4 mg PO TID PRN (Reason: Pain Or Fever) RF: 0 hydrocodone-acetaminophen 1 TABLET tablet 1 tab PO Q8H PRN (Reason: Pain 1-10 Or Fever) RF: 0 rizatriptan 10 MG tablet 10 mg PO PRN PRN (Reason: Headache) RF: 0 buspirone 15 MG tablet 15 mg PO TID RF: 0 duloxetine 30 MG capsule 30 mg PO DAILY RF: 0 Xeljanz XR 11 mg Tablet Extended Release 24 Hr 11 mg PO DAILY RF: 0 Stand Alone Forms: ED Work / School Excuse Primary Care Provider: Júnior Chapman III Referrals: Júnior Chapman III, MD [Primary Care Provider] - 3-5 Days Disposition Disposition: Home, Self Care
[2020-12-17 11:16] LABS: Mucous, Urine 0 SEEN /hpf (<or=2+)
[2020-12-17] MEDS: 0.9% Normal Saline 1,000 ML 1000 ML IV (11:16)
[2020-12-17 11:19] LABS: Color, Urine Yellow (Yellow); Glucose, Dipstick Normal (Normal); Ketone-Dipstick Negative (Negative); Leukocyte Esterase-Dipstick 500 /ul (Negative); Nitrite-Dipstick Negative (Negative); Occult Blood-Urine Negative /ul (Negative); Protein-Dipstick Negative (Negative); Specific Gravity, Urine 1.005 (1.002-1.030); Urine Bilirubin Dipstick Negative (Negative); Urine Clarity Sl. Cloudy (Clear); Urine Urobilinogen Normal (Normal)
[2020-12-17 11:21] VITALS: BP 117/82; PULSE 66; RESP 16; O2SAT 8
[2020-12-17 11:29] LABS: Bacteria RARE /hpf (None Seen); Red Blood Cells-Urine 0-5 SEEN /hpf (0-5); Squamous Epithelial Cells - UA 0-5 SEEN /hpf (5-10); White Blood Cells 10-25 SEEN /hpf (0-5)
[2020-12-17 11:29] LABS: Absolute Lymphocyte Count 2.13 X10^3/uL (0.83-4.51); Absolute Neutrophil Count 5.6 X10^3/uL (2.0-7.7); Basophil# 0.02 X10^3/uL; Basophil% 0.2 % (0-1); Eosinophil# 0.11 X10^3/uL; Eosinophils% 1.3 % (0-5); Hematocrit 42.3 % (37-47); Hemoglobin 13.3 g/dL (12.0-15.0); Lymphocyte # 2.13 X10^3/ul (0.83-4.51); Lymphocyte % 25.6 % (19-41); Mean Corp Hgb Conc 31.4 g/dL (32-36); Mean Corpuscular Hgb 25.6 pg (27.0-32.0); Mean Corpuscular Volume 81.3 fL (81-99); Mean Platelet Vol. 10.4 fl (6.2-12.0); Monocyte# 0.49 X10^3/uL; Monocyte% 5.9 % (0-10); NRBC Flagged by Analyzer 0 % (0-5); Neutrophil # 5.55 X10^3/uL (2.7-7.7); Neutrophil % 66.8 % (47-70); Platelet Count 250 K/mm3 (150-450); RBC Distribution Width CV 12.2 % (11.6-14.6); RBC Distribution Width SD 36.2 fl (35.1-43.9); White Blood Count 8.3 K/mm3 (4.4-11.0)
[2020-12-17 11:37] LABS: Internal QC Validated? YES +Cl - CLEAR BKGD; Pregnancy, Serum, hCG Quali. NEGATIVE Negative
[2020-12-17 11:47] LABS: ALB/GLOB Ratio 1.1 RATIO (0.9-2.4); AST(SGOT) 14 U/L (15-37); Alanine Aminotransfer ALT/SGPT 16 U/L (13-56); Albumin, Serum 3.8 g/dL (3.2-5.0); Alkaline Phosphatase 64 U/L (45-117); Anion Gap 6 (5-15); BUN 10 mg/dL (7-18); BUN/Creat Ratio 16.4 RATIO (10-20); Calcium,Total 8.6 mg/dL (8.5-10.1); Chloride 107 mmol/L (98-107); Creatinine, Serum 0.61 mg/dL (0.55-1.02); EST Glomerular Filtration Rate 131 mL/min (>60); Est Glom Filt Rate - Afr Amer 159 mL/min (>60); Estimated Creatinine Clearance 136.57 ml/min; Globulin 3.6 g/dL (2.2-4.2); Glucose 87 mg/dL (74-106); Potassium 3.6 mmol/L (3.5-5.1); Protein, Total 7.4 g/dL (6.4-8.2); Sodium Level 140 mmol/L (136-145)
[2020-12-17] MEDS: Cephalexin 500 MG Capsule PO (12:58)
[2020-12-17 13:02] VITALS: BP 98/67; PULSE 74; RESP 16; O2SAT 100
--- NOTE | 2020-12-17 13:03 | ED.RN ---
THIS NURSE REVIEWED D/C INSTRUCTIONS WITH PT AND VISITOR. PT VERBALIZED UNDERSTANDING OF INSTRUCTIONS. IV D/C. IV CATHETER INTACT. PT TOLERATED WELL. PT DENIES FURTHER NEEDS OR QUESTIONS AT THIS TIME.
== END 2020-12-17 13:04 | disposition home or self-care (01) ==
PROVIDERS: Emergency Provider Emergency Medicine; PCP Family Medicine
DX: N39.0 Urinary tract infection, site not specified (principal); R55 Syncope and collapse; M06.9 Rheumatoid arthritis, unspecified; Z79.899 Other long term (current) drug therapy
CPT/HCPCS: 71045; 80053; 81001; 84703; 85025; 93005; 96360; 96361; 99285; J7030

== ENCOUNTER → 2021-01-03 08:29 | Outpatient (CLI) | payer OTHER, SELFPAY ==
[2020-12-17 10:05] VITALS: BMI 22.6
[2021-01-02 17:41] LABS: Absolute Lymphocyte Count 1.94 X10^3/uL (0.83-4.51); Absolute Neutrophil Count 5.1 X10^3/uL (2.0-7.7); Basophil# 0.03 X10^3/uL; Basophil% 0.4 % (0-1); Eosinophil# 0.14 X10^3/uL; Eosinophils% 1.8 % (0-5); Hematocrit 41.2 % (37-47); Lymphocyte # 1.94 X10^3/ul (0.83-4.51); Lymphocyte % 24.3 % (19-41); Mean Corp Hgb Conc 31.6 g/dL (32-36); Mean Corpuscular Hgb 25.7 pg (27.0-32.0); Mean Corpuscular Volume 81.4 fL (81-99); Mean Platelet Vol. 10.9 fl (6.2-12.0); Monocyte# 0.74 X10^3/uL; Monocyte% 9.3 % (0-10); NRBC Flagged by Analyzer 0 % (0-5); Neutrophil # 5.13 X10^3/uL (2.7-7.7); Neutrophil % 63.9 % (47-70); Platelet Count 263 K/mm3 (150-450); RBC Distribution Width CV 12.8 % (11.6-14.6); RBC Distribution Width SD 37.6 fl (35.1-43.9); Red Blood Count 5.06 M/mm3 (4.2-5.4)
[2021-01-02 18:05] LABS: AST(SGOT) 15 U/L (15-37); Alanine Aminotransfer ALT/SGPT 21 U/L (13-56); Albumin, Serum 3.7 g/dL (3.2-5.0); Alkaline Phosphatase 60 U/L (45-117); Anion Gap 8 (5-15); BUN 9 mg/dL (7-18); BUN/Creat Ratio 14.1 RATIO (10-20); Calcium,Total 8.6 mg/dL (8.5-10.1); Chloride 106 mmol/L (98-107); Creatinine, Serum 0.64 mg/dL (0.55-1.02); EST Glomerular Filtration Rate 124 mL/min (>60); Est Glom Filt Rate - Afr Amer 150 mL/min (>60); Globulin 3.8 g/dL (2.2-4.2); Glucose 85 mg/dL (74-106); Potassium 3.7 mmol/L (3.5-5.1); Protein, Total 7.5 g/dL (6.4-8.2); Sodium Level 138 mmol/L (136-145)
[2021-01-02 18:12] LABS: Erythrocyte Sedimentation Rate 12 mm/hr (0-30)
[2021-01-03 10:07] LABS: Absolute Lymphocyte Count 1.58 X10^3/uL (0.83-4.51); Absolute Neutrophil Count 6.2 X10^3/uL (2.0-7.7); Basophil# 0.04 X10^3/uL; Basophil% 0.4 % (0-1); Eosinophil# 0.33 X10^3/uL; Eosinophils% 3.7 % (0-5); Hematocrit 43.3 % (37-47); Hemoglobin 13.7 g/dL (12.0-15.0); Lymphocyte # 1.58 X10^3/ul (0.83-4.51); Lymphocyte % 17.6 % (19-41); Mean Corp Hgb Conc 31.6 g/dL (32-36); Mean Corpuscular Hgb 25.8 pg (27.0-32.0); Mean Corpuscular Volume 81.7 fL (81-99); Mean Platelet Vol. 11.1 fl (6.2-12.0); Monocyte# 0.78 X10^3/uL; Monocyte% 8.7 % (0-10); NRBC Flagged by Analyzer 0 % (0-5); Neutrophil # 6.22 X10^3/uL (2.7-7.7); Neutrophil % 69.4 % (47-70); Platelet Count 259 K/mm3 (150-450); RBC Distribution Width CV 12.8 % (11.6-14.6)
[2021-01-03 10:15] LABS: Erythrocyte Sedimentation Rate 11 mm/hr (0-30)
[2021-01-03 10:33] LABS: AST(SGOT) 20 U/L (15-37); Alanine Aminotransfer ALT/SGPT 22 U/L (13-56); Albumin, Serum 3.6 g/dL (3.2-5.0); Alkaline Phosphatase 66 U/L (45-117); Anion Gap 8 (5-15); BUN 7 mg/dL (7-18); BUN/Creat Ratio 11.6 RATIO (10-20); Calcium,Total 8.4 mg/dL (8.5-10.1); Chloride 107 mmol/L (98-107); Cholesterol 181 mg/dL (200); Creatinine, Serum 0.61 mg/dL (0.55-1.02); EST Glomerular Filtration Rate 132 mL/min (>60); Est Glom Filt Rate - Afr Amer 160 mL/min (>60); Globulin 3.5 g/dL (2.2-4.2); Glucose 95 mg/dL (74-106); High Density Lipoprotein 57 mg/dL; Protein, Total 7.1 g/dL (6.4-8.2); Sodium Level 140 mmol/L (136-145); Triglycerides 54 mg/dL; Very Low Density Lipoprotein 11 mg/dL (5-40)
== END ==
LOC: MTLAB 08:30
PROVIDERS: Referring Provider Internal Medicine Rheumatology; Visit Provider Internal Medicine Rheumatology
DX: M06.09 Rheumatoid arthritis without rheumatoid factor, multiple sites (principal); Z79.899 Other long term (current) drug therapy; R76.8 Other specified abnormal immunological findings in serum; F32.9 Major depressive disorder, single episode, unspecified
CPT/HCPCS: 36415; 80053; 80061; 85025; 85652; 86140

== ENCOUNTER → 2021-01-30 16:26 | Outpatient (CLI) | payer OTHER, SELFPAY ==
[2021-01-30 18:06] LABS: Hematocrit 41.8 % (37-47); Hemoglobin 13.3 g/dL (12.0-15.0); Mean Corp Hgb Conc 31.8 g/dL (32-36); Mean Corpuscular Hgb 25.7 pg (27.0-32.0); Mean Corpuscular Volume 80.7 fL (81-99); Mean Platelet Vol. 10.9 fl (6.2-12.0); Platelet Count 271 K/mm3 (150-450); Red Blood Count 5.18 M/mm3 (4.2-5.4); White Blood Count 5.9 K/mm3 (4.4-11.0)
[2021-01-30 18:27] LABS: ALB/GLOB Ratio 0.9 RATIO (0.9-2.4); AST(SGOT) 14 U/L (15-37); Alanine Aminotransfer ALT/SGPT 24 U/L (13-56); Albumin, Serum 3.7 g/dL (3.2-5.0); Alkaline Phosphatase 55 U/L (45-117); Anion Gap 8 (5-15); BUN 12 mg/dL (7-18); BUN/Creat Ratio 19.3 RATIO (10-20); Calcium,Total 8.7 mg/dL (8.5-10.1); Chloride 107 mmol/L (98-107); Creatinine, Serum 0.62 mg/dL (0.55-1.02); EST Glomerular Filtration Rate 128 mL/min (>60); Est Glom Filt Rate - Afr Amer 155 mL/min (>60); Globulin 3.9 g/dL (2.2-4.2); Glucose 91 mg/dL (74-106); Potassium 3.7 mmol/L (3.5-5.1); Protein, Total 7.6 g/dL (6.4-8.2); Sodium Level 141 mmol/L (136-145); T4 Free Direct 0.78 ng/dL (0.76-1.46); Thyroid Stim Hormone (TSH) 1.78 uIU/mL (0.358-3.74)
[2021-02-02 07:06] LABS: QNTFERON TB Mitogen Value > 10.00 IU/mL (.); QNTFERON TB Nil Value 0.04 IU/mL (.); QNTFERON TB1+ Ag Value 0.05 IU/mL (.); QNTFERON TB2+ Ag Value 0.06 IU/mL (.)
[2021-02-02 07:41] LABS: QNTIFERON TB Positive Criteria Negative (Negative)
== END ==
LOC: MTLAB 16:29
PROVIDERS: PCP Nurse Practitioner Primary Care; Referring Provider Internal Medicine Rheumatology; Visit Provider Internal Medicine Rheumatology
DX: M06.09 Rheumatoid arthritis without rheumatoid factor, multiple sites (principal); F32.9 Major depressive disorder, single episode, unspecified; R76.8 Other specified abnormal immunological findings in serum; R51.9 Headache, unspecified; R55 Syncope and collapse; R42 Dizziness and giddiness; Z79.899 Other long term (current) drug therapy
CPT/HCPCS: 36415; 80053; 84439; 84443; 85027; 86480

== ENCOUNTER → 2021-04-24 17:18 | Outpatient (CLI) | payer OTHER, SELFPAY ==
[2021-04-24 17:38] LABS: Basophil# 0.03 X10^3/uL; Basophil% 0.4 % (0-1); Eosinophil# 0.08 X10^3/uL; Eosinophils% 1.2 % (0-5); Hematocrit 42.8 % (37-47); Hemoglobin 13.5 g/dL (12.0-15.0); Lymphocyte % 46.4 % (19-41); Mean Corp Hgb Conc 31.5 g/dL (32-36); Mean Corpuscular Hgb 25.8 pg (27.0-32.0); Mean Corpuscular Volume 81.7 fL (81-99); Mean Platelet Vol. 10.3 fl (6.2-12.0); Monocyte# 0.53 X10^3/uL; Monocyte% 7.7 % (0-10); NRBC Flagged by Analyzer 0 % (0-5); Neutrophil # 3.04 X10^3/uL (2.7-7.7); Neutrophil % 44.2 % (47-70); Platelet Count 276 K/mm3 (150-450); RBC Distribution Width SD 38.4 fl (35.1-43.9); Red Blood Count 5.24 M/mm3 (4.2-5.4); White Blood Count 6.9 K/mm3 (4.4-11.0)
[2021-04-24 18:51] LABS: ALB/GLOB Ratio 0.9 RATIO (0.9-2.4); AST(SGOT) 14 U/L (15-37); Alanine Aminotransfer ALT/SGPT 25 U/L (13-56); Albumin, Serum 3.5 g/dL (3.2-5.0); Alkaline Phosphatase 54 U/L (45-117); Anion Gap 4 (5-15); BUN 9 mg/dL (7-18); BUN/Creat Ratio 14.7 RATIO (10-20); Calcium,Total 8.6 mg/dL (8.5-10.1); Chloride 107 mmol/L (98-107); Creatinine, Serum 0.61 mg/dL (0.55-1.02); EST Glomerular Filtration Rate 130 mL/min (>60); Est Glom Filt Rate - Afr Amer 157 mL/min (>60); Globulin 3.9 g/dL (2.2-4.2); Glucose 85 mg/dL (74-106); Potassium 3.5 mmol/L (3.5-5.1); Protein, Total 7.4 g/dL (6.4-8.2); Sodium Level 140 mmol/L (136-145)
== END ==
PROVIDERS: PCP Nurse Practitioner Primary Care; Referring Provider Internal Medicine Rheumatology; Visit Provider Internal Medicine Rheumatology
DX: M06.09 Rheumatoid arthritis without rheumatoid factor, multiple sites (principal); F32.A Depression, unspecified; R76.8 Other specified abnormal immunological findings in serum; R51.9 Headache, unspecified; Z79.899 Other long term (current) drug therapy
CPT/HCPCS: 36415; 80053; 85025

== ENCOUNTER 2022-05-25 18:44 | Emergency (ER) | payer OTHER, SELFPAY ==
[2022-05-25 18:45] VITALS: BP 114/82; PULSE 74; RESP 14; TEMP 36.2; O2SAT 100; BMI 23.8
--- NOTE | 2022-05-25 19:30 | EX.ED.VIS.HA ---
HPI History of Present Illness Chief Complaint: Headache Informant: patient Onset/Context/Timing Onset: Today and Hours Timing: Continuous Quality -Headache: Positive for Similar Prior Headaches, Dull and Throbbing Current Severity: Moderate Associated Symptoms/Injury Associated Symptoms: Negative for Fever, Nausea, Vomiting, Sore Throat, Sinus Pressure, Numbness, Tingling, Preceding Aura, Visual Changes, Photophobia or Visual Loss Injury - GALDAMEZ: Negative for Direct Trauma, Fall or Assault Narrative Narrative: [id number] female history of migraine headaches, rheumatoid arthritis and fibromyalgia. Chest pain gets headaches monthly. Today is one of her typical migraine headaches with pain along the right side of her face. Also along her right forehead and behind her right eye. Denies nausea vomiting diarrhea. Does have photophobia. No fevers. No trauma. No. States she used her Topamax at home and Tylenol without any significant relief. Called her primary care physician who sent her in to be evaluated. Prior similar symptoms: Yes Recent Illness/Hospitalization: No PFSH PFSH Medical History Fibromyalgia Rheumatoid arthritis Home Medications topiramate 25 mg tablet (Topamax) 50 mg PO DAILY 07/03/16 [History Last Taken 08/03/18] norgestimate 0.25 mg-ethinyl estradiol 35 mcg tablet ([place]ukes-Linyah) 1 tab PO DAILY 08/03/18 [History Last Taken 08/03/18] folic acid 1 mg tablet 2 mg PO DAILY 09/05/19 [History Last Taken Unknown] hydroxychloroquine 200 mg tablet 300 mg PO DAILYCM 09/05/19 [History Last Taken Unknown] methotrexate sodium 2.5 mg tablet 8 tab PO QWEEK 09/05/19 [History Last Taken Unknown] tizanidine 4 mg capsule 4 mg PO TID PRN Pain Or Fever 11/16/19 [History Last Taken Unknown] buspirone 15 mg tablet 15 mg PO TID 08/09/20 [History Last Taken Unknown] duloxetine 30 mg capsule,delayed release 60 mg PO DAILY 08/09/20 [History Last Taken Unknown] hydrocodone-acetaminophen 5-325mg 5mg-325mg 1 tab PO Q8H PRN Pain 1-10 Or Fever 08/09/20 [History Last Taken Unknown] rizatriptan 10 mg tablet 10 mg PO PRN PRN Headache 08/09/20 [History Last Taken Unknown] gabapentin 100 mg capsule 300 mg PO DAILY 05/25/22 [History Last Taken Unknown] Allergy/AdvReac Type Severity Reaction Status Date / Time No Known Allergies Allergy Verified 05/25/22 19:03 Social History Smoking Status: Never smoker ROS ROS ED ROS Narrative Headache. Review of Systems ROS Unobtainable: Denies due to encephalopathy Constitutional Constitutional ED: Denies chills or fever(s) Eyes Eyes: Denies blurry vision ENT ENT ED: Denies ear pain Cardiovascular Cardiovascular: Denies chest pain Respiratory/Chest Respiratory/Chest: Denies cough Gastrointestinal Gastrointestinal: Denies abdominal pain Genitourinary Genitourinary ED: Denies dysuria or hematuria Musculoskeletal Musculoskeletal: Denies arthralgias Integumentary Denies abscess Neurologic Neurologic: Reports headache(s); Denies paresthesias Psychiatric Psychiatric: Denies anxiety or depression Endocrine Endocrinology: Denies polydipsia Hematologic/Lymphatic Hematologic/Lymphatic: Denies easy bleeding Allergic/Immunologic Allergic/Immunologic ED: Denies mouth swelling or tongue swelling EXAM Physical Exam Narrative Exam Narrative: 19-year-old female no acute distress vital signs stable afebrile. H EENT exam unremarkable. No droop. No signs of trauma. Pupils round reactive light. Normal speech. Neck nontender no meningismus. Lungs clear to auscultation. Heart regular rhythm. Abdomen soft nontender. Moving all 4 extremities. Normal motor strength. NIH 0. Fingertip to nose and [id number] within normal limits. No focal motor or sensory deficits Const Vital Signs: 05/25/22 18:45 Temperature 97.1 F L Temperature Source Temporal Pulse Rate 74 Respiratory Rate 14 Blood Pressure 114/82 H Blood Pressure Mean 92 Pulse Ox 100 Oxygen Delivery Method Room Air Positive well nourished and well developed; Negative for obese, cachectic, contractures or unkempt General Appearance ED: well developed and NAD; Negative for unkempt, cachectic, contractures, cyanotic, diaphoretic or pallor Nutritional Appearance: Negative for cachectic or obese HEENT Reports normocephalic and moist mucous membranes; Denies dry mucous membranes atraumatic; Negative for trauma, tenderness, temporal artery tenderness or vesicular rash Face and Sinus: Negative for sinus tenderness Mouth ED: No dry mucous membranes Mouth: No dry mucous membranes Eyes PERRL and EOMs intact bilaterally General Eye ED: Negative for pale conjunctiva or scleral icterus Neck no lymphadenopathy, supple, no meningeal signs and no JVD General: Negative for tenderness Resp normal respiratory effort and clear to auscultation bilaterally Effort and Inspection: Negative for retractions Auscultation: Negative for rales, rhonchi or wheezes Cardio regular rate, regular rhythm, S1 normal heart sound, S2 normal heart sound and no murmurs Rate: Negative for bradycardia or tachycardic Rhythm: Negative for abnormal rhythm GI non-tender and non-distended Auscultation: normoactive bowel sounds Palpation: soft; Negative for firm, tender or guarding Back/Spine no CVA tenderness General Back: Negative for CVA tenderness or tenderness Cervical Spine: Negative for cervical spine tenderness Thoracic Spine / Upper Back: Negative for thoracic spinal tenderness Lumbar Spine / Lower Back: Negative for lumbar spinal tenderness Extremity normal to inspection and full ROM General Extremety ED: Negative for edema or tenderness General Extremity: Negative for edema Neuro oriented x3, CN's II-XII intact bilaterally and no sensory deficits noted Sensorium / Orientation: awake, alert, oriented to person, oriented to place and oriented to time; Negative for orientation impaired, lethargic or stuporous Coordination / Balance: [id number] test normal and [id number] test normal; Negative for Romberg test negative or Romberg test positive Speech: speech normal Motor Exam: strength 5/5 throughout Comatose: Negative for other Psych mental status grossly normal Appearance: Negative for unkempt Attitude: No agitated Mood & Affect: Negative for depressed, anxious or tearful Skin General Skin Exam: Negative for jaundice or pallor Lesions: no lesions Rashes: no rashes Trauma: Negative for abrasion MDM MDM MDM Narrative Medical decision making narrative: 21-year-old with a history of migraines and similar headache. Exam benign. Neurologic exam normal. Treated with IV fluids, Toradol, Benadryl and Reglan. Then reassess. Repeat exam patient is doing well at 8:30 PM. Headache is resolving after medications. Neurologic exam remains normal. She will be discharged to home. Discharge Plan Triage Chief Complaint: Headache ED Provider: Agustin Griggs Dx/Rx/DC Orders Clinical Impression: Migraine headache Instructions: ED, Migraine (Classical) Prescriptions: No Action topiramate [Topamax] 25 MG tablet 50 mg PO DAILY Label Comments: for headaches norgestimate-ethinyl estradiol [[place]inyah] 1 EACH tablet 1 tab PO DAILY Label Comments: take 1 tablet by mouth once daily methotrexate sodium 2.5 MG tablet 8 tab PO QWEEK folic acid 1 MG tablet 2 mg PO DAILY hydroxychloroquine 200 MG tablet 300 mg PO DAILYCM tizanidine 4 MG capsule 4 mg PO TID PRN (Reason: Pain Or Fever) hydrocodone-acetaminophen 1 TABLET tablet 1 tab PO Q8H PRN (Reason: Pain 1-10 Or Fever) rizatriptan 10 MG tablet 10 mg PO PRN PRN (Reason: Headache) buspirone 15 MG tablet 15 mg PO TID duloxetine 30 MG capsule 60 mg PO DAILY gabapentin 100 mg capsule 300 mg PO DAILY Label Comments: TAKE 1 CAPSULE BY MOUTH TWICE A DAY FOR 30 DAYS Primary Care Provider: Maryan Alarcon NP Referrals: Maryan Alarcon NP, SURGICAL NURSE PRACTITIONER-C [Primary Care Provider] - 3-5 Days if not improving Activity Restrictions/Additional Instructions: Plenty of fluids and rest. Use your migraine medications along with Tylenol and Motrin as needed. Follow-up is not improving or return if worse. Disposition Disposition: Home, Self Care
[2022-05-25] MEDS: 0.9% Normal Saline 1,000 ML 1000 ML IV (19:38)
[2022-05-25] MEDS: Ondansetron 4 MG/2 ML Vial IV (19:39)
[2022-05-25] MEDS: Ketorolac 30 MG/ML Syringe IV (19:42)
[2022-05-25] MEDS: DiphenhydrAMINE 50 MG/ML Syringe 25 MG IV (19:46)
== END 2022-05-25 20:33 | disposition home or self-care (01) ==
LOC: ED 19:55
PROVIDERS: Emergency Provider Emergency Medicine; PCP Nurse Practitioner Primary Care; Visit Provider Emergency Medicine
DX: G43.909 Migraine, unspecified, not intractable, without status migrainosus (principal); M06.9 Rheumatoid arthritis, unspecified; M79.7 Fibromyalgia; Z79.899 Other long term (current) drug therapy
CPT/HCPCS: 96361; 96374; 96375; 99283; J7030; A4216; J2405

== ENCOUNTER → 2022-09-28 | Outpatient (CLI) | payer OTHER, SELFPAY ==
[2022-10-06 16:31] LABS: HPV Reflexed? NOT INDICATED
== END | disposition home or self-care (01) ==
LOC: LABSPEC 13:24
PROVIDERS: PCP Nurse Practitioner Primary Care; Visit Provider Nurse Practitioner Women's Health
DX: Z12.4 Encounter for screening for malignant neoplasm of cervix (principal)
CPT/HCPCS: 88175; G0145

== ENCOUNTER 2023-01-18 16:19 | Emergency (ER) | payer OTHER, SELFPAY ==
[2023-01-18 16:20] VITALS: BP 123/84; PULSE 69; RESP 14; TEMP 36.2; O2SAT 100; BMI 26.2
--- NOTE | 2023-01-18 16:39 | ED.VIS.LOWEX ---
HPI History of Present Illness Chief Complaint: Lower Extremity Injury Detail of Chief Complaint: Injury to right foot and ankle Informant: patient Narrative Narrative: Patient presents the emergency department with complaint of an injury to the right foot and ankle after a slip on her stairs yesterday. Patient unable to bear weight but painful. She denies any other injuries. [facility] Medical History Fibromyalgia Rheumatoid arthritis Home Medications topiramate 25 mg tablet (Topamax) 50 mg PO DAILY 07/03/16 [History Last Taken 08/03/18] norgestimate 0.25 mg-ethinyl estradiol 35 mcg tablet (Trousdale-Linyah) 1 tab PO DAILY 08/03/18 [History Last Taken 08/03/18] folic acid 1 mg tablet 2 mg PO DAILY 09/05/19 [History Last Taken Unknown] hydroxychloroquine 200 mg tablet 300 mg PO DAILYCM 09/05/19 [History Last Taken Unknown] methotrexate sodium 2.5 mg tablet 8 tab PO QWEEK 09/05/19 [History Last Taken Unknown] tizanidine 4 mg capsule 4 mg PO TID PRN Pain Or Fever 11/16/19 [History Last Taken Unknown] buspirone 15 mg tablet 15 mg PO TID 08/09/20 [History Last Taken Unknown] duloxetine 30 mg capsule,delayed release 60 mg PO DAILY 08/09/20 [History Last Taken Unknown] hydrocodone-acetaminophen 5-325mg 5mg-325mg 1 tab PO Q8H PRN Pain 1-10 Or Fever 08/09/20 [History Last Taken Unknown] rizatriptan 10 mg tablet 10 mg PO PRN PRN Headache 08/09/20 [History Last Taken Unknown] gabapentin 100 mg capsule 300 mg PO DAILY 05/25/22 [History Last Taken Unknown] Allergy/AdvReac Type Severity Reaction Status Date / Time No Known Allergies Allergy Verified 01/18/23 16:26 Social History Smoking Status: Never smoker ROS ROS ED Review of Systems ROS Unobtainable: other Constitutional Constitutional ED: Reports lethargy; Denies chills, fever(s), sweats or weight loss Eyes Eyes: Denies blurry vision, change in vision or diplopia ENT ENT ED: Denies rhinorrhea or sore throat Cardiovascular Cardiovascular: Denies chest pain, orthopnea or racing heartbeat Respiratory/Chest Respiratory/Chest: Denies cough, dyspnea, dyspnea on exertion, orthopnea or sputum Gastrointestinal Gastrointestinal: Denies abdominal pain, diarrhea, nausea or vomiting Genitourinary Genitourinary ED: Denies dysuria, hematuria or urinary frequency Musculoskeletal Musculoskeletal: Reports other Details: Pain to right foot and ankle ; Denies arthralgias, back pain, myalgias or neck pain Integumentary Denies abscess, Abrasions or rash Neurologic Neurologic: Denies headache(s) or weakness Psychiatric Psychiatric: Denies anxiety, depression or suicidal thoughts Endocrine Endocrinology: Denies polydipsia, polyphagia or polyuria Hematologic/Lymphatic Hematologic/Lymphatic: Denies easy bleeding, easy bruising or lymphadenopathy Allergic/Immunologic Allergic/Immunologic ED: Denies mouth swelling, tongue swelling or urticaria EXAM Physical Exam Const Vital Signs: 01/18/23 16:20 Temperature 97.2 F L Temperature Source Temporal Pulse Rate 69 Respiratory Rate 14 Blood Pressure 123/84 H Blood Pressure Mean 97 Pulse Ox 100 Oxygen Delivery Method Room Air Positive well nourished and well developed General Appearance ED: well developed and NAD HEENT Reports TM's clear and moist mucous membranes normocephalic and atraumatic; Negative for trauma or tenderness Tympanic Membrane ED: Yes TM's clear Eyes PERRL and EOMs intact bilaterally General Eye ED: Negative for pale conjunctiva or scleral icterus Neck no lymphadenopathy, supple and no JVD General: Negative for tenderness Chest Wall inspection of chest normal and palpation of chest normal Chest: Negative for tenderness Resp normal respiratory effort and clear to auscultation bilaterally Effort and Inspection: Negative for respiratory distress or pain with movement Auscultation: Negative for rhonchi, wheezes or diminished lung sounds Cardio regular rate, regular rhythm, S1 normal heart sound, S2 normal heart sound and no murmurs Peripheral Pulses: pulses 2+ throughout GI normal to inspection, nondistended, normoactive bowel sounds, soft to palpation, non-tender, non-distended and no masses Back/Spine no CVA tenderness and no thoracic nor lumbar tenderness Extremity Extremity Narrative: Right lower extremity-patient has ecchymosis and bruising diffusely about the right ankle with tenderness over the lateral malleolus. Patient has tenderness over the dorsal lateral aspect of the foot. No significant tenderness to the proximal fibular head. No tenderness over the base of the fifth metatarsal. She is neurovascular intact distally. There is soft tissue swelling diffusely about the dorsum of the foot and lateral malleolus. General Extremety ED: Negative for edema General Extremity: Negative for edema Neuro oriented x3, CN's II-XII intact bilaterally, no sensory deficits noted and gait normal Sensorium / Orientation: awake, alert, oriented to person, oriented to place and oriented to time Motor Exam: strength 5/5 throughout and strength abnormal Psych mental status grossly normal Skin no rashes or lesions noted and no wounds MDM MDM MDM Narrative Medical decision making narrative: Patient presents with injury to her right foot and ankle. X-rays negative for fracture. Patient will be given an air splint. She not want crutches. She will take ibuprofen or Tylenol for discomfort. She is instructed to ice and elevate the extremity. She does not want work restrictions. Radiography Diagnostic Testing: Clinical Impression(s) from Imaging Studies Ankle X-Ray 01/18/23 16:40 IMPRESSION: Negative. Electronically Signed: Adrien Irving MD at 17:09 EDT , Foot X-Ray 01/18/23 16:40 IMPRESSION: Negative. Electronically Signed: Adrien Irving MD at 17:10 EDT , Three-view x-rays of the right ankle obtained interpreted by myself as no acute fractures or dislocation. Radiology in agreement. Three-view x-rays of right foot obtained interpreted by myself as no evidence of fracture or dislocation. Radiology in agreement. Discharge Plan Triage Chief Complaint: Lower Extremity Injury ED Provider: Shalini Bueno Dx/Rx/DC Orders Clinical Impression: Right ankle sprain, Right foot sprain Instructions: ED Foot Sprain, ED Ankle Sprain (Adult) Prescriptions: No Action topiramate [Topamax] 25 MG tablet 50 mg PO DAILY Patient Comments: for headaches norgestimate-ethinyl estradiol [Trousdale-Linyah] 1 EACH tablet 1 tab PO DAILY Patient Comments: take 1 tablet by mouth once daily methotrexate sodium 2.5 MG tablet 8 tab PO QWEEK folic acid 1 MG tablet 2 mg PO DAILY hydroxychloroquine 200 MG tablet 300 mg PO DAILYCM tizanidine 4 MG capsule 4 mg PO TID PRN (Reason: Pain Or Fever) hydrocodone-acetaminophen 1 TABLET tablet 1 tab PO Q8H PRN (Reason: Pain 1-10 Or Fever) rizatriptan 10 MG tablet 10 mg PO PRN PRN (Reason: Headache) buspirone 15 MG tablet 15 mg PO TID duloxetine 30 MG capsule 60 mg PO DAILY gabapentin 100 mg capsule 300 mg PO DAILY Patient Comments: TAKE 1 CAPSULE BY MOUTH TWICE A DAY FOR 30 DAYS Primary Care Provider: Maryan Alarcon NP Referrals: Maryan Alarcon NP, [facility]GER[facility] [Primary Care Provider] - 5-7 Days Disposition Disposition: Home, Self Care Discharge Date/Time: 01/18/23 18:03
--- NOTE | 2023-01-18 16:40 | RAD_ITS ---
INDICATION: injury EXAMINATION/TECHNIQUE: X-RAY - RIGHT XR Ankle Min 3 Views 3 VIEWS COMPARISON: None FINDINGS: SOFT TISSUES: No soft tissue swelling or gas. No radiopaque foreign body. BONES/JOINTS: No acute fracture or subluxation. Ankle mortise and subtalar joint appear normal. No sclerotic or destructive changes observed. RAD/Ankle min 3 Views IMPRESSION: Negative. Electronically Signed: Adrien Irving MD at 17:09 EDT ,
--- NOTE | 2023-01-18 16:40 | RAD_ITS ---
INDICATION: injury, right foot pain and bruising EXAMINATION/TECHNIQUE: X-RAY - RIGHT XR Foot Min 3 Views 3 VIEWS COMPARISON: None FINDINGS: SOFT TISSUES: No soft tissue swelling or gas. No radiopaque foreign body. BONES/JOINTS: No acute fracture or subluxation. Lisfranc and Chopart planes appear normal. Joint spaces are maintained. No sclerotic or destructive changes observed. RAD/Foot min 3 Views IMPRESSION: Negative. Electronically Signed: Adrien Irving MD at 17:10 EDT ,
== END 2023-01-18 18:03 | disposition home or self-care (01) ==
PROVIDERS: Emergency Provider Emergency Medicine; PCP Nurse Practitioner Primary Care; Visit Provider Emergency Medicine
DX: S93.401A Sprain of unspecified ligament of right ankle, initial encounter (principal); X58.XXXA Exposure to other specified factors, initial encounter
CPT/HCPCS: 73610; 73630; 99282

== ENCOUNTER 2023-06-19 14:26 | Emergency (ER) | payer OTHER, SELFPAY ==
[2023-06-19 14:26] VITALS: BP 114/78; PULSE 64; RESP 14; TEMP 36.4; O2SAT 98; BMI 25.8
--- NOTE | 2023-06-19 14:38 | EDS_ITS ---
HPI HPI - Female History of Present Illness Chief Complaint: Vag Bleeding Informant: patient Pain Pain: Positive for Pelvic Pain Onset: Weeks Context: Gradual Onset Timing: Intermittent Quality: Positive for Cramping Current Severity: Mild Maximum Severity: Mild Worsened by: Movement Relieved by: Remaining Still Bleeding Issue: Positive for Vaginal bleeding; Negative for Passing clots or Passing tissue Onset: Weeks Context: Gradual Onset Timing: Intermittent Current Severity: Mild Maximum Severity: Mild Associated Symptoms Associated Symptoms: Negative for Dysuria, Frequency, Urgency or Hematuria Test: Positive Control: BCP Narrative Narrative: 22-year-old female past medical history of rheumatoid arthritis and fibromyalgia. Currently is on control pills. Prior to her control pill she had lengthy menstrual periods. She has not had them since she started the control over 6 months ago. Started having bleeding about a month ago is been intermittent. And some pelvic cramping. Denies any discharge or dysuria. Prior similar symptoms: Yes Recent Illness/Hospitalization: No PFSH PFSH Medical History Fibromyalgia Rheumatoid arthritis Home Medications topiramate 25 mg tablet (Topamax) 50 mg PO DAILY 07/03/16 [History Last Taken 08/03/18] norgestimate 0.25 mg-ethinyl estradiol 35 mcg tablet (Nelson-Linyah) 1 tab PO DAILY 08/03/18 [History Last Taken 08/03/18] folic acid 1 mg tablet 2 mg PO DAILY 09/05/19 [History Last Taken Unknown] hydroxychloroquine 200 mg tablet 300 mg PO DAILYCM 09/05/19 [History Last Taken Unknown] methotrexate sodium 2.5 mg tablet 8 tab PO QWEEK 09/05/19 [History Last Taken Unknown] tizanidine 4 mg capsule 4 mg PO TID PRN Pain Or Fever 11/16/19 [History Last Taken Unknown] buspirone 15 mg tablet 15 mg PO TID 08/09/20 [History Last Taken Unknown] duloxetine 30 mg capsule,delayed release 60 mg PO DAILY 08/09/20 [History Last Taken Unknown] hydrocodone-acetaminophen 5-325mg 5mg-325mg 1 tab PO Q8H PRN Pain 1-10 Or Fever 08/09/20 [History Last Taken Unknown] rizatriptan 10 mg tablet 10 mg PO PRN PRN Headache 08/09/20 [History Last Taken Unknown] gabapentin 100 mg capsule 300 mg PO DAILY 05/25/22 [History Last Taken Unknown] Allergy/AdvReac Type Severity Reaction Status Date / Time No Known Allergies Allergy Verified 06/19/23 14:26 Social History Smoking Status: Never smoker ROS ROS ED ROS Narrative Vaginal bleeding. Pelvic cramping. No recent illness. No nosebleeds. No bruising. No melena. Review of Systems ROS Unobtainable: Denies due to encephalopathy Constitutional Constitutional ED: Denies chills or fever(s) Eyes Eyes: Denies blurry vision ENT ENT ED: Denies ear pain Cardiovascular Cardiovascular: Denies chest pain Respiratory/Chest Respiratory/Chest: Denies cough or dyspnea Gastrointestinal Gastrointestinal: Denies abdominal pain Genitourinary Genitourinary ED: Denies dysuria or hematuria Musculoskeletal Musculoskeletal: Denies arthralgias or myalgias Integumentary Denies abscess or Abrasions Neurologic Neurologic: Denies headache(s) Psychiatric Psychiatric: Denies anxiety Endocrine Endocrinology: Denies heat intolerance Hematologic/Lymphatic Hematologic/Lymphatic: Denies easy bleeding, easy bruising or lymphadenopathy Allergic/Immunologic Allergic/Immunologic ED: Denies mouth swelling, tongue swelling or urticaria EXAM Physical Exam Narrative Exam Narrative: Well-appearing 22-year-old female. Vital signs stable afebrile. Heart rate 64. HEENT exam unremarkable. Lungs clear. Heart regular rhythm no murmur. Abdomen soft nondistended normal bowel sounds no peritoneal signs. Mild suprapubic tenderness. Moving all 4 extremities. No bruising. No rashes. Nontender no edema. She is awake and alert. Benign exam. Const Vital Signs: 06/19/23 14:26 Temperature 97.6 F L Temperature Source Oral Pulse Rate 64 Respiratory Rate 14 Blood Pressure 114/78 Blood Pressure Mean 90 Pulse Ox 98 Oxygen Delivery Method Room Air Positive well nourished and well developed; Negative for obese, cachectic, contractures or unkempt General Appearance ED: well developed and NAD; Negative for unkempt, cachectic, contractures or pallor Nutritional Appearance: Negative for cachectic or obese HEENT Reports moist mucous membranes Negative for trauma or tenderness Eyes PERRL and EOMs intact bilaterally General Eye ED: Negative for pale conjunctiva, scleral icterus or other Neck no lymphadenopathy, supple and no JVD General: Negative for other Thyroid: Negative for tender Lymph Lymphatic: Negative for other Chest Wall inspection of chest normal and palpation of chest normal Chest: Negative for other Resp normal respiratory effort and clear to auscultation bilaterally Effort and Inspection: Negative for pain with movement Auscultation: Negative for rales, rhonchi or wheezes Cardio regular rate, regular rhythm, S1 normal heart sound, no murmurs and no JVD Rate: Negative for bradycardia or tachycardic Rhythm: Negative for abnormal rhythm GI normal to inspection, nondistended, normoactive bowel sounds, soft to palpation, non-tender, non-distended and no masses Auscultation: normoactive bowel sounds Palpation: Negative for tender, guarding or rigid Back/Spine no CVA tenderness General Back: Negative for CVA tenderness Cervical Spine: Negative for cervical spine tenderness Thoracic Spine / Upper Back: Negative for thoracic spinal tenderness Lumbar Spine / Lower Back: Negative for lumbar spinal tenderness Sacrum: Negative for other Extremity normal to inspection and full ROM General Extremety ED: Negative for edema or tenderness General Extremity: Negative for edema Neuro oriented x3 and CN's II-XII intact bilaterally Sensorium / Orientation: alert, oriented to person, oriented to place and oriented to time; Negative for confused, lethargic or stuporous Motor Exam: strength 5/5 throughout Psych mental status grossly normal Appearance: Negative for unkempt Attitude: No agitated Speech: No other Mood & Affect: Negative for depressed, anxious or tearful Skin no rashes or lesions noted and no wounds General Skin Exam: Negative for jaundice or pallor Rashes: No rashes noted Trauma: Negative for other MDM MDM MDM Narrative Medical decision making narrative: 22-year-old female vaginal bleeding. Intermittent since her last menstrual period started in April. On control. Blood count and serum test being obtained. Exam patient doing well at 3:35 PM. We went over her test results. She deferred on the pelvic exam which I clinically do not think she needs at this time. She will follow-up with her [facility] [employer] [facility] group in [place]. History & Record Review Discussion w/independent historian: Patient Additional record(s) reviewed:: Prior inpatient record, Prior outpatient record, Prior ED visit and Prior labs Lab Data Attestation: I reviewed the patient's lab results. Lab results narrative: CBC normal. White count of 7. H&H of 14.6 and 46. Platelets 267. Serum test negative. Labs: Laboratory Results - last 24 hr 06/19/23 14:45 WBC 7.8 RBC 5.60 H Hgb 14.6 Hct 46.3 MCV 82.7 MCH 26.1 L MCHC 31.5 L RDW Std Deviation 36.8 RDW Coeff of Davi 12.1 Plt Count 267 MPV 10.3 Serum , Qual NEGATIVE Discharge Plan Triage Chief Complaint: Vag Bleeding ED Provider: Agustin Griggs Dx/Rx/DC Orders Clinical Impression: Irregular menstrual bleeding Instructions: ED Dysfunctional Uterine Bleeding Prescriptions: No Action topiramate [Topamax] 25 MG tablet 50 mg PO DAILY Patient Comments: for headaches norgestimate-ethinyl estradiol [Nelson-Linyah] 1 EACH tablet 1 tab PO DAILY Patient Comments: take 1 tablet by mouth once daily methotrexate sodium 2.5 MG tablet 8 tab PO QWEEK folic acid 1 MG tablet 2 mg PO DAILY hydroxychloroquine 200 MG tablet 300 mg PO DAILYCM tizanidine 4 MG capsule 4 mg PO TID PRN (Reason: Pain Or Fever) hydrocodone-acetaminophen 1 TABLET tablet 1 tab PO Q8H PRN (Reason: Pain 1-10 Or Fever) rizatriptan 10 MG tablet 10 mg PO PRN PRN (Reason: Headache) buspirone 15 MG tablet 15 mg PO TID duloxetine 30 MG capsule 60 mg PO DAILY gabapentin 100 mg capsule 300 mg PO DAILY Patient Comments: TAKE 1 CAPSULE BY MOUTH TWICE A DAY FOR 30 DAYS Primary Care Provider: Maryan Alarcon NP Referrals: Maryan Alarcon NP, [employer] [Primary Care Provider] - As Needed Activity Restrictions/Additional Instructions: You are not . Your blood counts are normal. Call and follow-up with your [employer] [employer] group. If need be they can put you on medications to stop the bleeding or if need be but most likely not do a D&C. Plenty of fluids. Rest. Motrin and Tylenol for cramping. Disposition Disposition: Home, Self Care
[2023-06-19 15:05] LABS: Hematocrit 46.3 % (37-47); Hemoglobin 14.6 g/dL (12.0-15.0); Mean Corp Hgb Conc 31.5 g/dL (32-36); Mean Corpuscular Hgb 26.1 pg (27.0-32.0); Mean Corpuscular Volume 82.7 fL (81-99); Mean Platelet Vol. 10.3 fl (6.2-12.0); Platelet Count 267 K/mm3 (150-450); RBC Distribution Width CV 12.1 % (11.6-14.6); RBC Distribution Width SD 36.8 fl (35.1-43.9); White Blood Count 7.8 K/mm3 (4.4-11.0)
[2023-06-19 15:16] LABS: Internal QC Validated? YES +Cl - CLEAR BKGD; Pregnancy, Serum, hCG Quali. NEGATIVE Negative
== END 2023-06-19 15:45 | disposition home or self-care (01) ==
PROVIDERS: Emergency Provider Emergency Medicine; PCP Nurse Practitioner Primary Care; Visit Provider Emergency Medicine
DX: N92.5 Other specified irregular menstruation (principal)
CPT/HCPCS: 84703; 85027; 99283

== ENCOUNTER → 2024-06-13 | Outpatient (CLI) | payer OTHER, SELFPAY ==
[2024-06-13 19:29] LABS: Amphetamine Urine VISTA NEGATIVE (<1000 ng/mL); Barbiturate Urine VISTA NEGATIVE (< 200 ng/mL); Benzodiazepine Urine VISTA NEGATIVE (< 200 ng/mL); Cocaine Urine VISTA NEGATIVE (< 300 ng/mL); Ecstacy Urine VISTA NEGATIVE (< 500 ng/mL); Methadone Urine VISTA NEGATIVE (< 300 ng/mL); PCP Urine VISTA NEGATIVE (< 25 ng/mL); THC Urine VISTA NEGATIVE (< 50 ng/mL); Vista UDS pH Range 5
== END | disposition home or self-care (01) ==
LOC: MTLAB 16:01
PROVIDERS: PCP Nurse Practitioner Primary Care; Referring Provider Internal Medicine Pulmonary Disease; Visit Provider Internal Medicine Pulmonary Disease
DX: G47.10 Hypersomnia, unspecified (principal)
CPT/HCPCS: 80307

== ENCOUNTER → 2024-06-26 | Outpatient (CLI) | payer OTHER, SELFPAY ==
--- NOTE | 2024-06-26 09:29 | MRI_ITS ---
STUDY: MRI LUMBAR SPINE WITHOUT CONTRAST REASON FOR EXAM: Female, 23 years old. pain X 2 YEARS, INOT LEGS BILATERALLY TECHNIQUE: Standardized fat and water weighted pulse sequences were obtained in the sagittal and axial planes. COMPARISON: X-ray 05/12/2024 FINDINGS: T12-L1: Normal endplates. Normal disc height, hydration and morphology. Normal bilateral facet joints. Normal central canal and bilateral lateral recesses. Normal bilateral intervertebral neural foramina. Normal lumbar lordosis. There is no substantial scoliosis. Normal conus medullaris that terminates at the L1/L2. L1-2: Normal endplates. Normal disc height, hydration and morphology. Normal bilateral facet joints. Normal central canal and bilateral lateral recesses. Normal bilateral intervertebral neural foramina. L2-3: Normal endplates. Normal disc height, hydration and morphology. Normal bilateral facet joints. Normal central canal and bilateral lateral recesses. Normal bilateral intervertebral neural foramina. L3-4: Normal endplates. Normal disc height, hydration and morphology. Normal bilateral facet joints. Normal central canal and bilateral lateral recesses. Normal bilateral intervertebral neural foramina. L4-5: Normal endplates. Normal disc height, hydration and morphology. Normal bilateral facet joints. Normal central canal and bilateral lateral recesses. Normal bilateral intervertebral neural foramina. L5-S1: Normal endplates. Normal disc height, hydration and morphology. Normal bilateral facet joints. Normal central canal and bilateral lateral recesses. Normal bilateral intervertebral neural foramina. Normal visualized sacral ala. Normal visualized paraspinous soft tissue structures. MRI/Spine Lumbar (Routine) IMPRESSION: Normal unenhanced MR examination of the lumbar spine. Electronically Signed: Marcos Garcia MD at 13:56 EST ,
== END | disposition home or self-care (01) ==
LOC: MRI 14:58
PROVIDERS: PCP Nurse Practitioner Primary Care; Referring Provider Orthopaedic Surgery Orthopaedic Surgery of the Spine; Visit Provider Orthopaedic Surgery Orthopaedic Surgery of the Spine
DX: M54.16 Radiculopathy, lumbar region (principal)
CPT/HCPCS: 72148